=== PATIENT | female | born 1935 | race Hispanic/Latino ===

== ENCOUNTER 2017-02-20 18:26 | Inpatient (IN) | payer MEDICARE ==
[2017-02-20 18:26] VITALS: BMI 33.9
[2017-02-20] MEDS ORDERED: Sodium Chloride 0.9% 1,000 ML IV STA (19:22)
--- NOTE | 2017-02-20 19:45 | ED PDOC ---
Arrival/HPI <Chito Sy - Last Filed: 02/21/17 00:22> - History of Present Illness Time/Duration: 4-6 hours Symptom Onset: Gradual Severity Level: Mild <Yobani Fernandez - Last Filed: 02/21/17 04:12> - General Chief Complaint: GI Problem Time Seen by Provider: 02/20/17 19:08 - History of Present Illness Narrative History of Present Illness (Text): 02/20/17 19:38 This is a 81 year old female with a PMH of breast cancer, hypothyroidism, colitis, diverticulitis, HTN presenting to the ED for evaluation of BRBPR. The patient reports that she has had 7 or more BM today and has noticed dropplets of bright red blood in the toilette. The patient also reports that there is some bright red blood on the outside of the stool. The patient also notes that she had pain during defecation. The patient reports a history of GI bleed in the past. The patient denies change in color of the stool. The patient denies fever, chills, fatigue, chest pain, shortness of breath, changes in stool color/ caliber, and extremity weakness/paresthesias. (Yobani Fernandez) Past Medical History <Chito Sy - Last Filed: 02/21/17 00:22> - Provider Review Nursing Documentation Reviewed: Yes - Travel History Have you recently traveled outside [place] w/in the past 3 mons?: No - Infectious Disease Hx of Infectious Diseases: None - Tetanus Immunization Tetanus Immunization: Unknown - Reproductive Menopause: Yes - Cardiac Hx Hypertension: Yes Hx Pacemaker: No - Pulmonary Hx Respiratory Disorders: No - Neurological Hx Neurological Disorder: No Hx Paralysis: No - HEENT Hx HEENT Disorder: No - Renal Hx Renal Disorder: No - Endocrine/Metabolic Hx Hypothyroidism: Yes - Hematological/Oncological Hx Blood Transfusions: Yes Hx Blood Transfusion Reaction: No Hx Cancer: Yes (Rt. Breast CA) - Musculoskeletal/Rheumatological Hx Musculoskeletal Disorders: Yes - Gastrointestinal Other/Comment: GI BLEEDING - Genitourinary/Gynecological Hx Genitourinary Disorders: No - Psychiatric Hx Psychophysiologic Disorder: No Hx Substance Use: No - Surgical History Hx Breast Biopsy: Yes - Anesthesia Hx Anesthesia Reactions: No Hx Malignant Hyperthermia: No <Yobani Fernandez - Last Filed: 02/21/17 04:12> - Patient History Narrative Patient History: This is a 81 year old female with a PMH of breast cancer, hypothyroidism, colitis, diverticulitis, HTN (Yobani Fernandez) Family/Social History - Physician Review Nursing Documentation Reviewed: Yes Family/Social History: No Known Family HX Smoking Status: Never Smoked Hx Alcohol Use: No Hx Substance Use: No <Yobani Fernandez - Last Filed: 02/21/17 04:12> Allergies/Home Meds <Chito Sy - Last Filed: 02/21/17 00:22> <Yobani Fernandez - Last Filed: 02/21/17 04:12> Allergies/Adverse Reactions: Allergies metronidazole [From Flagyl] Allergy (Verified 02/20/17 18:50) RASH Penicillins Allergy (Verified 06/07/16 23:47) URTICARIA Home Medications: Home Meds Medication Instructions Recorded Confirmed Cholecalciferol [Vitamin D3] 1,000 iu PO DAILY 09/23/12 02/20/17 Levothyroxine Sodium [Synthroid] 0.15 mg PO DAILY 09/23/12 06/08/16 Metoprolol Tartrate 100 mg PO DAILY 09/23/12 02/20/17 traMADol [Ultram] 50 mg PO Q8 PRN 06/08/16 02/20/17 Omeprazole Magnesium [Prilosec Otc] 20 mg PO DAILY 02/20/17 02/20/17 Review of Systems - Physician Review All systems were reviewed & negative as marked: Yes - Review of Systems Constitutional: absent: Fatigue, Fevers Eyes: absent: Vision Changes, Eye Pain ENT: absent: Hearing Changes, Tinnitus Respiratory: absent: SOB, Cough Cardiovascular: absent: Chest Pain, Palpitations, Syncope Gastrointestinal: Abdominal Pain. absent: Constipation, Diarrhea, Nausea, Vomiting, Appetite Changes, Hematochezia, Hematemesis Genitourinary Female: absent: Dysuria, Frequency, Hematuria Musculoskeletal: absent: Arthralgias, Back Pain, Neck Pain, Joint Swelling Skin: absent: Rash, Skin Lesions Neurological: absent: Headache, Dizziness Endocrine: absent: Diaphoresis Hemo/Lymphatic: absent: Adenopathy Psychiatric: absent: Anxiety <Yobani Fernandez - Last Filed: 02/21/17 04:12> Physical Exam Vital Signs Reviewed: Yes Temperature: Afebrile Blood Pressure: Hypertensive Pulse: Regular Respiratory Rate: Normal Appearance: Positive for: Well-Appearing Pain Distress: None Mental Status: Positive for: Alert and Oriented X 3 - Systems Exam Head: Present: Atraumatic, Normocephalic Pupils: Present: PERRL Extroacular Muscles: Present: EOMI Conjunctiva: Present: Normal Mouth: Present: Moist Mucous Membranes. No: Drooling Neck: Present: Normal Range of Motion. No: Lymphadenopathy Respiratory/Chest: Present: Clear to Auscultation, Good Air Exchange. No: Respiratory Distress, Accessory Muscle Use Cardiovascular: Present: Regular Rate and Rhythm, Normal S1, S2. No: Murmurs Abdomen: Present: Normal Bowel Sounds. No: Tenderness, Distention, Peritoneal Signs, Rebound, Guarding Upper Extremity: Present: Normal Inspection, Normal ROM, NORMAL PULSES, Neurovascularly Intact. No: Cyanosis, Edema Lower Extremity: Present: Normal Inspection, NORMAL PULSES, Tenderness, Neurovascularly Intact. No: Edema Neurological: Present: GCS=15, CN II-XII Intact, Speech Normal Skin: Present: Warm, Dry, Normal Color. No: Rashes Psychiatric: Present: Alert, Oriented x 3 <Yobani Fernandez - Last Filed: 02/21/17 04:12> Vital Signs Temp Pulse Resp BP Pulse Ox 02/20/17 22:24 70 16 198/76 H 94 L 02/20/17 20:42 65 16 187/77 H 98 02/20/17 18:53 97.9 F 69 17 196/98 H 95 Medical Decision Making - EKG Interpretation Interpreted by ED Physician: Yes Type: 12 lead EKG <Chito Sy - Last Filed: 02/21/17 00:22> Re-evaluation Time: 21:25 Reassessment Condition: Re-examined - Lab Interpretations I have reviewed the lab results: Yes Interpretation: No clinic. lab abnormalty <Yobani Fernandez - Last Filed: 02/21/17 04:12> ED Course and Treatment: Patient seen and examined with resident Came up with treatment and disposition plan with resident (Chito Sy) 02/20/17 19:47 Impression: This is a 81 year old female with a PMH of breast cancer, hypothyroidism, colitis, diverticulitis, HTN presenting to the ED for evaluation of BRBPR. Patient appears in no acute distress. Remote history of GI bleed has her concerned for recurrence. Patient symptom presentation and reportation likely indicative of anal fissure vs hemorrhoids. Differential: Anal Fisure External Hemorrhoids GI Bleed Plan: CBC, CMP, Ferritin, TIBC, Transferrin, PRR, PT Cardiac ISO Type and Screen Protonix 1L NS Bolus CXR EKG UA Prior Visits: 06/08/16- Lower GI Bleed Progress Note: Patient seen and examined at the bedside. Patient in no acute distress. Patient showing no overt signs of blood loss anemia. patient presentation is benign. Patient pending laboratory evaluation. Further treatment interventions pending workup. 02/20/17 21:31 Patient re-examined. Feeling well. no interval changes. Laboratory results reviewed with the patient. 02/20/17 22:08 Dr. delgado's service contacted for admission. They will accept the admission to med surg floor. Patient to be full admission as per admitting physician. ( Yobani Fernandez) - Lab Interpretations Lab Results: 02/20/17 20:30 02/20/17 20:30 Lab Results 02/20/17 20:30: WBC 4.9 D, RBC 3.65, Hgb 11.7 L, Hct 34.4 L, MCV 94.2, MCH 32.1 , MCHC 34.0, RDW 13.4, Plt Count 224, MPV 9.0, Gran % 63.9, Lymph % (Auto) 27.4 , Orange % (Auto) 6.9 H, Eos % (Auto) 1.6, Baso % (Auto) 0.2, Gran # 3.14, Lymph # 1.4, Orange # 0.3, Eos # 0.1, Baso # 0.01, PT 11.0, INR 1.02, APTT 24.7, Sodium 137, Potassium 4.1, Chloride 103, Carbon Dioxide 25, Anion Gap 13, BUN 22 H, Creatinine 1.1, Est GFR ( Amer) 58, Est GFR (Non-Af Amer) 48, Random Glucose 104, Calcium 9.4, TIBC 326, Ferritin Pending, Total Bilirubin 0.7, AST 22, ALT 27, Alkaline Phosphatase 100, Lactate Dehydrogenase 535, Total Creatine Kinase 63, Troponin I < 0.01 D, Total Protein 7.4, Albumin 3.8, Globulin 3.5, Albumin/Globulin Ratio 1.1, Blood Type O POSITIVE, Antibody Screen Negative, BBK History Checked Patient has bt - RAD Interpretation Radiology Orders: 02/20/17 19:22 CHEST PORTABLE [RAD] Stat - EKG Interpretation EKG Interpretation (Text): 02/21/17 00:23 EKG: Ordered, reviewed, and independently interpreted the EKG. Rate : 64 BPM Rhythm : NSR Interpretation : No ST-segment elevations, normal axis, normal intervals. Interpreted by me. (Chito Sy) - Medication Orders Current Medication Orders: Discontinued Medications Sodium Chloride (Sodium Chloride 0.9%) 1,000 mls @ 1,000 mls/hr IV .Q1H STA Stop: 02/20/17 20:21 Last Admin: 02/20/17 20:36 Dose: 1,000 MLS/HR eMAR Start Stop Document 02/20/17 20:36 HI (Rec: 02/20/17 20:36 AL [id number]) Intravenous Solution Start Date 02/20/17 Start Time 20:36 End Date 02/20/17 End time 21:36 Total Infusion Time 60 Pantoprazole Sodium (Protonix Inj) 40 mg IVP STAT STA Stop: 02/20/17 19:23 Last Admin: 02/20/17 20:36 Dose: 40 MG IVP Administration Document 02/20/17 20:36 HI (Rec: 02/20/17 20:36 AL [id number]) Charges for Administration # of IVP Administrations 1 Disposition/Present on Arrival <Chito Sy - Last Filed: 02/21/17 00:22> - Present on Arrival Any Indicators Present on Arrival: No History of DVT/PE: No History of Uncontrolled Diabetes: No Urinary Catheter: No History of Decub. Ulcer: No History Surgical Site Infection Following: None - Disposition Have Diagnosis and Disposition been Completed?: Yes Disposition Time: 21:00 Patient Plan: Admission <Yobani Fernandez - Last Filed: 02/21/17 04:12> - Disposition Diagnosis: Bright red blood per rectum, GI bleed Disposition: HOSPITALIZED Patient Problems: Current Active Problems Problem Status Diagnosed Bright red blood per rectum Acute GI bleed Acute Condition: FAIR
[2017-02-20 20:38] LABS: ADD MANUAL DIFF? NO
[2017-02-20 20:47] LABS: BASO # 0.01 [, K/mm3] (0.0-2.0); BASO % 0.2 % (0.0-3.0); EOS # 0.1 (0.0-0.7); EOS % 1.6 % (1.5-5.0); GRAN # 3.14 (1.4-6.5); GRAN % 63.9 % (50.0-68.0); HEMATOCRIT 34.4 % (36.0-48.0); LYMPH # 1.4 (1.2-3.4); LYMPH % 27.4 % (22.0-35.0); MEAN CELL VOLUME 94.2 fL (80.0-105.0); MEAN CORPUSCULAR HEMOGLOBIN 32.1 pg (25.0-35.0); MONO # 0.3 (0.1-0.6); MONO % 6.9 % (1.0-6.0); PLATELET COUNT 224 [, 10^3/uL] (120.0-450.0); RED CELL DISTRIBUTION WIDTH 13.4 % (11.5-14.5); WHITE BLOOD COUNT 4.9 [, 10^3/ul] (4.5-11.0)
[2017-02-20 20:52] LABS: ALB/GLOB RATIO 1.1 (1.1-1.8); ALKALINE PHOSPHATASE 100 U/L (38-133); ALT/SGPT 27 U/L (7-56); AST/SGOT 22 U/L (15-39); BILIRUBIN,TOTAL 0.7 mg/dL (0.2-1.3); BLOOD UREA NITROGEN 22 mg/dL (7-21); CALCIUM 9.4 mg/dL (8.4-10.5); CARBON DIOXIDE 25 mmol/L (21-33); CHLORIDE 103 mmol/L (98-107); GFR AFRICAN-AMERICAN 58; GLUCOSE,RANDOM 104 mg/dL (70-110); POTASSIUM 4.1 mmol/L (3.6-5.0); SODIUM 137 mmol/L (132-148); TOTAL PROTEIN 7.4 g/dL (5.8-8.3)
[2017-02-20 20:54] LABS: INR 1.02 (0.93-1.08); PARTIAL THROMBOPLASTIN TIME 24.7 Seconds (23.7-30.8)
[2017-02-20 21:07] LABS: TROPONIN I < 0.01 ng/mL
--- NOTE | 2017-02-21 08:35 | CP.PCM.HP ---
History of Present Illness - History of Present Illness History of Present Illness: 81 year old female with history of hypertension, hypothyroidism, back pain, breast cancer and colitis who presented to [place] [facility] for bright red blood per rectum. Patient states she had about 7 bowel movements yesterday with a small amount of blood. She denies chest pain, or SOB. She does complain of crampy abdominal pain prior to having a bowel movement. She denies abdominal pain at this time. Present on Admission - Present on Admission Any Indicators Present on Admission: No Review of Systems - Constitutional Constitutional: absent: Chills, Fever, Night Sweats - Cardiovascular Cardiovascular: absent: Chest Pain, Dyspnea - Respiratory Respiratory: absent: Cough, Hemoptysis, Wheezing - Gastrointestinal Gastrointestinal: As Per HPI Past Patient History - Infectious Disease Hx of Infectious Diseases: None - Tetanus Immunizations Tetanus Immunization: Unknown - Past Social History Smoking Status: Never Smoked - CARDIAC Hx Hypertension: Yes Hx Pacemaker: No - PULMONARY Hx Respiratory Disorders: No - NEUROLOGICAL Hx Neurological Disorder: No Hx Paralysis: No - HEENT Hx HEENT Problems: No - RENAL Hx Chronic Kidney Disease: No - ENDOCRINE/METABOLIC Hx Hypothyroidism: Yes - HEMATOLOGICAL/ONCOLOGICAL Hx Blood Transfusions: Yes Hx Blood Transfusion Reaction: No Hx Cancer: Yes (Rt. Breast CA) - MUSCULOSKELETAL/RHEUMATOLOGICAL Hx Musculoskeletal Disorders: Yes Hx Back Pain: Yes - GASTROINTESTINAL Other/Comment: GI BLEEDING - GENITOURINARY/GYNECOLOGICAL Hx Genitourinary Disorders: No - PSYCHIATRIC Hx Psychophysiologic Disorder: No Hx Substance Use: No - SURGICAL HISTORY Hx Breast Biopsy: Yes Hx Cholecystectomy: Yes - ANESTHESIA Hx Anesthesia Reactions: No Hx Malignant Hyperthermia: No Meds Allergies/Adverse Reactions: Allergies Allergy/AdvReac Type Severity Reaction Status Date / Time metronidazole [From Flagyl] Allergy RASH Verified 02/20/17 18:50 Penicillins Allergy URTICARIA Verified 06/07/16 23:47 Physical Exam - Constitutional Appears: No Acute Distress - Head Exam Head Exam: ATRAUMATIC, NORMOCEPHALIC - Respiratory Exam Respiratory Exam: Clear to Auscultation Bilateral, NORMAL BREATHING PATTERN - Cardiovascular Exam Cardiovascular Exam: +S1, +S2 - GI/Abdominal Exam GI & Abdominal Exam: Normal Bowel Sounds, Soft. absent: Tenderness - Neurological Exam Neurological exam: Alert, Oriented x3 Results - Vital Signs Recent Vital Signs: Last Vital Signs Temp 97.9 F 03/24/17 18:53 Pulse 70 02/20/17 22:24 Resp 18 02/21/17 00:21 BP 208/78 H 02/21/17 07:00 Pulse Ox 94 L 02/20/17 22:24 - Labs Result Diagrams: 02/22/17 06:00 02/22/17 06:00 Assessment & Plan - Assessment and Plan (Free Text) Assessment: GI Bleed r/o colitis HTN Hypothyroidism Back pain H/O breast cancer s/p surgery Plan: Patient with bloody bowel movements. continue IV Protonix daily. monitor hemoglobin and we will consult gastroenterology with Dr. Angelo. Ferritin has been ordered. continue metoprolol 100 mg once daily for hypertension. Her blood pressure is elevated this morning. It was 204/78. She was given Metoprolol 100mg and Apresoline 25 mg. We will monitor blood pressure and add medication if needed. continue synthroid for hypothyroidism and ultram for back pain. She will be maintained on a 2 gram sodium diet.
--- NOTE | 2017-02-21 09:23 | RAD ---
HISTORY: Cough COMPARISON: 06/08/2016. FINDINGS: LUNGS: The lungs are hyperinflated and there is peribronchial thickening with chronic changes in both lungs. No active pulmonary disease. PLEURA: No significant pleural effusion identified, no pneumothorax apparent. CARDIOVASCULAR: Normal. OSSEOUS STRUCTURES: No significant abnormalities. VISUALIZED UPPER ABDOMEN: Normal. OTHER FINDINGS: None. IMPRESSION: No active disease. COPD.
[2017-02-21] MEDS: Levothyroxine 150 MCG TAB PO SCH (09:43)
--- NOTE | 2017-02-21 14:59 | CARD ---
APPROVED REPORT EKG Measurement Heart [id number] PA [id number] <Conclusion> Normal sinus rhythm Normal ECG
--- NOTE | 2017-02-22 06:36 | CON ---
DATE: 02/21/2017 This patient was seen and evaluated earlier and discussed with Dr. Lara. HISTORY OF PRESENT ILLNESS: This 81-year-old patient with a past medical history of right breast car cinoma, status post radiation, chemo and lumpectomy, history of hypertension, dyslipidemia, presented with acute onset of bright red blood per rectum, several episodes and had dark maroon stool. She di d have some crampy abdominal discomfort, eventually it improved. No fever, no vomiting. The patient has history of colitis, was hospitalized in 05/2015. She was treated conservatively at that time wit h antibiotics with improvement. The patient was recommended at that time to the elective colonoscopy , but she does not want to go through with colonoscopic evaluation. She did not follow up also. The patient has history of status post cholecystectomy, found to have dilated common bile duct refused [employer] at that time. PAST MEDICAL HISTORY: As above. ALLERGIES: PENICILLIN. SOCIAL HISTORY: Denies smoking or alcohol. REVIEW OF SYSTEMS: Positive as above. Other systems reviewed and negative. PHYSICAL EXAMINATION: GENERAL: The patient is lying on the bed, not in acute distress. VITAL SIGNS: Temperature is 97.9, pulse 63, respiration is 20, O2 saturation 96%, blood pressure 136 /60. HEENT: Head is atraumatic, anicteric. NECK: Supple. HEART: S1, S2 heard. LUNGS: Bilateral air entry present. ABDOMEN: Soft. There is no mass palpable. No tenderness. EXTREMITIES: No edema. No cyanosis. NEUROLOGIC: Alert, oriented. Moves all the extremities. LABORATORY DATA: WBC count 4.9, hemoglobin 11.7, hematocrit 34.4, platelets 224. Chemistry is [facility] unremarkable. BUN 22. ASSESSMENT: This 81-year-old patient admitted with acute onset of abdominal discomfort, bleeding per rectum, history of colitis in the past, likely to consider this is another episode of colitis, ische grecia versus inflammatory. The patient now has no pain, tolerating the diet. No bleeding. Hemoglobin remains stable. Her other past medical history significant for hypertension, dyslipidemia, history of breast cancer status post radiation and chemo. RECOMMENDATIONS: 1. Followup of the hemoglobin and hematocrit. 2. CT scan of the abdomen and pelvis with p.o. and IV contrast. If the hemoglobin is stable with no further episodes of bleeding and the CAT scan is negative, patient may be discharged to have followu p as an outpatient. The importance of colonoscopy was again explained to the patient who fully under stood the necessity for followup with GI as an outpatient. I also had an extensive discussion with Clare Lara. Will continue to closely follow up her care and suggest further management based on t he clinical course. Paul Angelo MD cc: [id number] TT: 02/22/2017 06:35:48 Confirmation # [id number] Dictation # [id number]
[2017-02-22 06:39] LABS: HEMATOCRIT 30.8 % (36.0-48.0); MEAN CELL VOLUME 94.2 fL (80.0-105.0); MEAN CORPUSCULAR HEMOGLOBIN 31.8 pg (25.0-35.0); MEAN CORPUSCULAR HGB CONC 33.8 g/dl (31.0-37.0); PLATELET COUNT 184 [, 10^3/uL] (120.0-450.0); RED CELL DISTRIBUTION WIDTH 13.5 % (11.5-14.5); WHITE BLOOD COUNT 3.9 [, 10^3/ul] (4.5-11.0)
[2017-02-22 06:53] LABS: BILIRUBIN,TOTAL 0.7 mg/dL (0.2-1.3); POTASSIUM 3.7 mmol/L (3.6-5.0); TOTAL PROTEIN 6.9 g/dL (5.8-8.3)
[2017-02-22 07:34] LABS: BASO # 0.01 [, K/mm3] (0.0-2.0); BASO % 0.3 % (0.0-3.0); EOS # 0.1 (0.0-0.7); EOS % 3.3 % (1.5-5.0); GRAN # 1.45 (1.4-6.5); GRAN % 36.8 % (50.0-68.0); LYMPH % 50.4 % (22.0-35.0); MONO # 0.4 (0.1-0.6); MONO % 9.2 % (1.0-6.0)
[2017-02-22 07:35] LABS: ADD MANUAL DIFF? NO
[2017-02-22] MEDS: Metoprolol Succinate 100 mg XL Tab PO SCH (08:00)
[2017-02-22] MEDS: Levothyroxine 150 MCG TAB PO SCH (08:00)
--- NOTE | 2017-02-22 09:49 | CP.PCM.PN ---
Subjective - Date & Time of Evaluation Date of Evaluation: 02/22/17 Time of Evaluation: 08:15 - Subjective Subjective: Patient is seen this morning. She is feeling ok. She says that she had some small bowel movements yesterday with a small amount of blood. Denies chest pain , SOB or abdominal pain. Objective - Vital Signs/Intake and Output Vital Signs (last 24 hours): Temp Pulse Resp BP Pulse Ox 97.6 F 70 18 168/61 H 95 02/22/17 08:05 02/22/17 08:05 02/22/17 08:05 02/22/17 08:05 02/22/17 08:05 - Medications Medications: Current Medications Cholecalciferol (Vitamin D) 1,000 iu PO DAILY [facility] Last Admin: 02/22/17 09:11 Dose: 1,000 iu Levothyroxine Sodium (Synthroid) 150 mcg PO ACB [facility] Last Admin: 02/22/17 08:00 Dose: 150 mcg Metoprolol Succinate (Toprol Xl) 100 mg PO BRK [facility] Last Admin: 02/22/17 08:00 Dose: 100 mg Pantoprazole Sodium (Protonix Inj) 40 mg IVP DAILY [facility] Last Admin: 02/22/17 09:11 Dose: 40 mg Tramadol HCl (Ultram) 50 mg PO Q8 PRN PRN Reason: Pain, moderate (4-7) Last Admin: 02/22/17 08:12 Dose: 50 mg - Labs Labs: 02/22/17 06:00 02/22/17 06:00 PT 11.0 Seconds (9.9-11.8) 02/20/17 20:30 INR 1.02 (0.93-1.08) 02/20/17 20:30 APTT 24.7 Seconds (23.7-30.8) 02/20/17 20:30 - Constitutional Appears: No Acute Distress - Head Exam Head Exam: ATRAUMATIC, NORMOCEPHALIC - Respiratory Exam Respiratory Exam: Clear to Ausculation Bilateral, NORMAL BREATHING PATTERN - Cardiovascular Exam Cardiovascular Exam: +S1, +S2 - GI/Abdominal Exam GI & Abdominal Exam: Soft, Normal Bowel Sounds. absent: Tenderness - Neurological Exam Neurological Exam: Alert, Awake, Oriented x3 Assessment and Plan - Assessment and Plan (Free Text) Assessment: GI Bleed R/O colitis HTN Hypothyroidism Back pain H/O Breast Cancer Plan: Patient complains of some small watery bowel movements with a small amount of blood. We will check a stool for C. diff and stool culture. She was evaluated by Dr. Angelo, rn postpartum. She refuses to have colonoscopy. CT abd/pelvis has been ordered by Dr. Angelo. continue Protonix. monitor H&H
[2017-02-22] MEDS ORDERED: Barium Sulfate Susp 2.1% w/v, 2.0% w/w 450 mL Bottle PO ONE (11:23)
--- NOTE | 2017-02-22 16:25 | CT ---
PROCEDURE: CT Abdomen and Pelvis with contrast HISTORY: GI Bleed COMPARISON: 06/10/2016. TECHNIQUE: CT scan of the abdomen and pelvis was performed after administration of oral contrast. Intravenous contrast was not administered. Coronal and sagittal reformatted images were obtained. Radiation dose: Total exam DLP = 1158.60 MGy-cm. FINDINGS: LOWER THORAX: The right breast is denser and larger than the left. There is dependent atelectasis in the lung bases and lingula. LIVER: The liver is normal in size. No biliary intrahepatic dilatation. GALLBLADDER AND BILE DUCTS: The gallbladder is surgically absent. Moderate dilatation of the common bile duct is in keeping with postcholecystectomy status. PANCREAS: There is mild diffuse atrophy of the pancreas. No ductal dilatation or calcifications. SPLEEN: Normal in size. ADRENALS: Both adrenal glands are normal in size without discrete nodule. KIDNEYS AND URETERS: Both kidneys are normal in size without hydronephrosis or nephrolithiasis. There is a 2.4 x 2.8 cm simple cyst in the lower pole of the right kidney, stable since the prior examination. VASCULATURE: No evidence of aortic aneurysm. The proximal aorta is tortuous. BOWEL: The small bowel loops are normal in caliber. The colon is normal in appearance. There is no evidence of bowel dilatation or obstruction. APPENDIX: Normal appendix. PERITONEUM: No free fluid. No free air. LYMPH NODES: No enlarged lymph nodes. BLADDER: Normal in appearance. 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 OTHER FINDINGS: There is a small sliding hiatal hernia. There are postsurgical changes of right supraumbilical ventral hernia repair. IMPRESSION: No acute abdominal or pelvic abnormality. Small sliding hiatal hernia.
--- NOTE | 2017-02-22 20:53 | PN ---
DATE: 02/22/2017 SUBJECTIVE: This patient was seen and evaluated earlier. No further episodes of diarrhea, feeling c omfortable. She is having p.o. contrast for the CAT scan. PHYSICAL EXAMINATION: VITAL SIGNS: Temperature 97.6, pulse 70, blood pressure 168/61. HEENT: Atraumatic, anicteric. NECK: Supple. HEART: S1, S2 heard. LUNGS: Bilateral air entry present. ABDOMEN: Soft. There is no mass palpable. No tenderness. EXTREMITIES: No cyanosis, no clubbing, no edema. LABORATORY DATA: Hemoglobin 10.4, hematocrit 30.8, WBC 3.9, platelets 184. BUN 18, creatinine 1.1. IMPRESSION: This 81-year-old patient was admitted with bleeding per rectum with loose stool. The pa yohana did have a history of colitis in the past for which she was hospitalized. At this time she den ies any abdominal pain. Hemoglobin has been stable. The patient declined to have any invasive andrew p including CAT scan, even at the time of discharge on a previous hospitalization. The daughter was also at bedside and she also confirmed that the patient does not want any workup including a colonosc opy for evaluation. However, the CAT scan was ordered to make sure there is no big mass lesions or i nflammatory changes and she was agreeable for the CAT scan. PLAN: The present plan is to follow up the CAT scan and compare it with the previous CAT scan. If t he patient is tolerating the diet and hemoglobin is stable and the CT scan is negative, then the trace ent can be discharged home tomorrow and will follow up as an outpatient. Thank you very much for allowing us to participate in the care of the patient. Paul Angelo MD cc: [id number] TT: 02/22/2017 20:52:31 Confirmation # [id number] Dictation # [id number] pietro
[2017-02-23] MEDS: Metoprolol Succinate 100 mg XL Tab PO SCH (08:19)
[2017-02-23] MEDS: Levothyroxine 150 MCG TAB PO SCH (08:19)
[2017-02-23 08:22] VITALS: BP 152/62; PULSE 63
--- NOTE | 2017-02-23 09:01 | CP.PCM.PN ---
Subjective - Date & Time of Evaluation Date of Evaluation: 02/23/17 Time of Evaluation: 08:00 - Subjective Subjective: Patient is seen this morning in room 370 bed 1. She has no complaints. She wants to go home. Objective - Vital Signs/Intake and Output Vital Signs (last 24 hours): Temp Pulse Resp BP Pulse Ox 98.1 F 63 20 152/62 H 97 02/22/17 17:34 02/23/17 08:19 02/22/17 17:34 02/23/17 08:19 02/22/17 17:34 Intake and Output: 02/23/17 02/23/17 06:59 18:59 Intake Total 200 Balance 200 - Medications Medications: Current Medications Cholecalciferol (Vitamin D) 1,000 iu PO DAILY [facility] Last Admin: 02/22/17 09:11 Dose: 1,000 iu Levothyroxine Sodium (Synthroid) 150 mcg PO ACB [facility] Last Admin: 02/23/17 08:19 Dose: 150 mcg Metoprolol Succinate (Toprol Xl) 100 mg PO BRK [facility] Last Admin: 02/23/17 08:19 Dose: 100 mg Pantoprazole Sodium (Protonix Inj) 40 mg IVP DAILY [facility] Last Admin: 02/22/17 09:11 Dose: 40 mg Tramadol HCl (Ultram) 50 mg PO Q8 PRN PRN Reason: Pain, moderate (4-7) Last Admin: 02/22/17 08:12 Dose: 50 mg - Labs Labs: 02/22/17 06:00 02/22/17 06:00 PT 11.0 Seconds (9.9-11.8) 02/20/17 20:30 INR 1.02 (0.93-1.08) 02/20/17 20:30 APTT 24.7 Seconds (23.7-30.8) 02/20/17 20:30 - Constitutional Appears: No Acute Distress - Head Exam Head Exam: ATRAUMATIC, NORMOCEPHALIC - Respiratory Exam Respiratory Exam: Clear to Ausculation Bilateral, NORMAL BREATHING PATTERN - Cardiovascular Exam Cardiovascular Exam: +S1, +S2 - GI/Abdominal Exam GI & Abdominal Exam: Soft, Normal Bowel Sounds. absent: Tenderness - Neurological Exam Neurological Exam: Alert, Awake, Oriented x3 Assessment and Plan - Assessment and Plan (Free Text) Assessment: GI Bleed r/o colitis HTN Hypothyroidism Back pain H/O Breast CA Plan: Patient is doing well. She refuses to have colonoscopy. GI consult appreciated. CT abd/pelvis shows small sliding hiatal hernia. Patient will be discharged home today. She will continue her home medications and followup with her primary care doctor. Discharge meds: Cholecalciferol (Vitamin D) 1,000 iu PO DAILY [facility] Levothyroxine Sodium (Synthroid) 150 mcg PO ACB [facility] Metoprolol Tartrate 100 mg PO BRK [facility] Tramadol 50 mg PO TID Prilosec 20 mg PO daily
[2017-02-23] MEDS ORDERED: Pneumococcal 23-Valent Vaccine IM ONE (09:16)
[2017-02-23 09:25] VITALS: RESP 17; TEMP 97.5; O2SAT 96
== END 2017-02-23 10:46 | disposition home or self-care (01) | DRG 392 ==
LOC: ED 18:26 → ERH 22:16 → 3RSO 23:16
PROVIDERS: ADMIT Internal Medicine; ATTEND Internal Medicine
DX: K52.9 Noninfective gastroenteritis and colitis, unspecified (principal); I10 Essential (primary) hypertension; E03.9 Hypothyroidism, unspecified; M54.9 Dorsalgia, unspecified; E78.5 Hyperlipidemia, unspecified; Z85.3 Personal history of malignant neoplasm of breast; Z92.3 Personal history of irradiation; Z92.21 Personal history of antineoplastic chemotherapy; Z90.49 Acquired absence of other specified parts of digestive tract

== ENCOUNTER 2019-04-22 11:41 | Inpatient (IN) | payer MEDICARE ==
[2019-04-22 12:05] VITALS: BMI 31.6
--- NOTE | 2019-04-22 12:20 | ED PDOC ---
Arrival/HPI - General Chief Complaint: Cough, Cold, Congestion Time Seen by Provider: 04/22/19 11:48 Historian: Patient - History of Present Illness Narrative History of Present Illness (Text): 04/22/19 12:21 83 year old female, with a past medical history of breast cancer, and hypertension, who presents to the emergency department complaining of cough x 1 week. Patient reports she was given medications for cough, which she states she vomited after taking yesterday. Patient reports 2 episodes of vomiting today. Patient endorses generalized weakness today and states she could not walk and had to use a walker. She denies any fever, chills, nausea, shortness of breath, chest pain, throat pain, abdominal pain, or any other somatic complaints. Patient denies any sick contact or recent travel. Symptom Onset: Gradual Symptom Course: Unchanged Activities at Onset: Light Context: Home Past Medical History - Provider Review Nursing Documentation Reviewed: Yes Primary Care Provider: Non [facility] Provider, - Infectious Disease Hx of Infectious Diseases: None - Tetanus Immunization Tetanus Immunization: Unknown - Reproductive Menopause: Yes - Cardiac Hx Hypertension: Yes Hx Pacemaker: No - Pulmonary Hx Respiratory Disorders: No - Neurological Hx Neurological Disorder: No Hx Paralysis: No - HEENT Hx HEENT Disorder: No - Renal Hx Renal Disorder: No - Endocrine/Metabolic Hx Hypothyroidism: Yes - Hematological/Oncological Hx Blood Transfusions: Yes Hx Blood Transfusion Reaction: No Hx Cancer: Yes (Rt. Breast CA) - Musculoskeletal/Rheumatological Hx Musculoskeletal Disorders: Yes Hx Back Pain: Yes - Gastrointestinal Other/Comment: GI BLEEDING - Genitourinary/Gynecological Hx Genitourinary Disorders: No - Psychiatric Hx Psychophysiologic Disorder: No Hx Substance Use: No - Surgical History Hx Breast Biopsy: Yes Hx Cholecystectomy: Yes - Anesthesia Hx Anesthesia Reactions: No Hx Malignant Hyperthermia: No Family/Social History - Physician Review Nursing Documentation Reviewed: Yes Family/Social History: Unknown Family HX Smoking Status: Never Smoked Hx Alcohol Use: No Hx Substance Use: No Allergies/Home Meds Allergies/Adverse Reactions: Allergies metronidazole [From Flagyl] Allergy (Verified 04/22/19 17:27) RASH Penicillins Allergy (Verified 04/22/19 17:27) URTICARIA atorvastatin Adverse Reaction (Intermediate, Verified 04/24/19 18:30) PAIN Pt states she was prescribed medication by her site lead previously and experienced joint pain. Home Medications: Home Meds Medication Instructions Recorded Confirmed traMADol [Ultram] 50 mg PO Q8 PRN 06/08/16 04/22/19 Review of Systems - Physician Review All systems were reviewed & negative as marked: Yes - Review of Systems Constitutional: absent: Fevers Respiratory: Cough. absent: SOB Cardiovascular: absent: Chest Pain Gastrointestinal: Vomiting. absent: Abdominal Pain, Nausea Physical Exam Vital Signs Reviewed: Yes Vital Signs Temp Pulse Resp BP Pulse Ox 04/22/19 12:11 76 18 151/75 H 96 04/22/19 12:05 98 F 73 18 151/75 H 97 Temperature: Afebrile Blood Pressure: Normal Pulse: Regular Respiratory Rate: Normal Appearance: Positive for: Well-Appearing, Non-Toxic, Comfortable Pain Distress: None Mental Status: Positive for: Alert and Oriented X 3 - Systems Exam Head: Present: Atraumatic, Normocephalic Pupils: Present: PERRL Extroacular Muscles: Present: EOMI Conjunctiva: Present: Normal Mouth: Present: Moist Mucous Membranes Neck: Present: Normal Range of Motion Respiratory/Chest: Present: Clear to Auscultation, Good Air Exchange. No: Respi ratory Distress, Accessory Muscle Use Cardiovascular: Present: Regular Rate and Rhythm, Normal S1, S2. No: Murmurs Abdomen: No: Tenderness, Distention, Peritoneal Signs Back: Present: Normal Inspection Upper Extremity: Present: Normal Inspection. No: Cyanosis, Edema Lower Extremity: Present: Normal Inspection. No: Edema Neurological: Present: GCS=15, Speech Normal Skin: Present: Warm, Dry, Normal Color. No: Rashes Psychiatric: Present: Alert, Oriented x 3, Normal Insight, Normal Concentration Medical Decision Making ED Course and Treatment: 04/22/19 12:17 Impression: 83 year old female presents to the emergency department complaining of cough. Differential Diagnosis included but are not limited to: r/o Pneumonia v HI. Plan: -- Chest X-ray -- Labs -- EKG -- VBG -- Reassess and disposition Prior Visits: Notes and results from previous visits were reviewed. Progress Notes: 04/22/19 14:[address] Espinoza (Cardiology), states since patient is not complaining about chest pain, will continue with regular medications, will admit to telemetry. - RAD Interpretation Narrative RAD Interpretations (Text): 04/22/19 12:42 Chest X-ray reviewed by radiologist, shows: No active disease Project Crew Worker: Radiologist - EKG Interpretation EKG Interpretation (Text): 04/22/19 12:31 Normal sinus rhythm at 72 bpm, RBBB, right axis deviation. Interpreted by ED Physician: Yes - Scribe Statement The provider has reviewed the documentation as recorded by the Tamikaibe [place] All medical record entries made by the Tamikaibji were at my direction and personally dictated by me. I have reviewed the chart and agree that the record accurately reflects my personal performance of the history, physical exam, medical decision making, and the department course for this patient. I have also personally directed, reviewed, and agree with the discharge instructions and disposition. Disposition/Present on Arrival - Present on Arrival Any Indicators Present on Arrival: No History of DVT/PE: No History of Uncontrolled Diabetes: No Urinary Catheter: No History of Decub. Ulcer: No History Surgical Site Infection Following: None - Disposition Have Diagnosis and Disposition been Completed?: Yes Diagnosis: NSTEMI (non-ST elevated myocardial infarction), CHF (congestive heart failure) Disposition: HOSPITALIZED Disposition Time: 14:33 Patient Plan: Telemetry Condition: GUARDED
--- NOTE | 2019-04-22 12:39 | RAD ---
Date of service: 04/22/2019 HISTORY: r/o infiltrate COMPARISON: 02/20/2017 TECHNIQUE: 1 view obtained. FINDINGS: LUNGS: No active pulmonary disease. PLEURA: No significant pleural effusion identified, no pneumothorax apparent. CARDIOVASCULAR: No aortic atherosclerotic calcification present. Normal cardiac size. No pulmonary vascular congestion. OSSEOUS STRUCTURES: No significant abnormalities. VISUALIZED UPPER ABDOMEN: Normal. OTHER FINDINGS: None. IMPRESSION: No active disease.
[2019-04-22 12:45] LABS: VENOUS BLOOD GAS BASE EXCESS 0.1 mmol/L (0.0-2.0); VENOUS BLOOD GAS PO2 25 mm/Hg (30-55); VENOUS BLOOD PH 7.41 (7.32-7.43)
[2019-04-22 13:04] LABS: BASO # 0.01 K/mm3 (0.0-2.0); BASO % 0.3 % (0.0-3.0); EOS # 0.1 (0.0-0.7); EOS % 1.8 % (1.5-5.0); HEMOGLOBIN 12.1 g/dL (12.0-16.0); LYMPH # 1.1 (1.2-3.4); LYMPH % 32.6 % (22.0-35.0); MEAN CORPUSCULAR HEMOGLOBIN 31.6 pg (25.0-35.0); MEAN PLATELET VOLUME 9.3 fl (7.0-11.0); MONO # 0.3 (0.1-0.6); MONO % 8.8 % (1.0-6.0); RBC 3.83 10^6/uL (3.5-6.1); RED CELL DISTRIBUTION WIDTH 13.8 % (11.5-14.5); WHITE BLOOD COUNT 3.4 10^3/uL (4.5-11.0)
[2019-04-22 13:40] LABS: ALB/GLOB RATIO 1.1 (1.1-1.8); ALBUMIN 3.9 g/dL (3.0-4.8); CALCIUM 8.9 mg/dL (8.4-10.5)
[2019-04-22] MEDS ORDERED: Famotidine 20mg/50ml 20 MG in Premixed IV 50 EA IVPB STA (14:15)
[2019-04-22 14:23] LABS: TROPONIN I 2.84 ng/mL
[2019-04-22] MEDS: Sodium Chloride 0.9% 1,000 ML IV STA ×2 (14:24→14:35)
[2019-04-22] MEDS ORDERED: Sodium Chloride 0.9% 500 ML IV STA (14:37)
[2019-04-22] MEDS ORDERED: Morphine 2 mg/ml ISec IVP PRN (15:39)
[2019-04-22] MEDS ORDERED: Metoprolol Succinate 100 mg XL Tab PO SCH (15:45)
[2019-04-22] MEDS ORDERED: Sodium Chloride 0.9% 1,000 ML IV SCH (16:15)
[2019-04-22 16:31] LABS: VENOUS BLOOD GAS BASE EXCESS -1.5 mmol/L (0.0-2.0); VENOUS BLOOD GAS PO2 100 mm/Hg (30-55); VENOUS BLOOD PH 7.46 (7.32-7.43)
[2019-04-22] MEDS: Metoprolol Succinate 100 mg XL Tab PO SCH (16:45)
[2019-04-22] MEDS: guaiFENesin DM 100 mg-10 mg/5 ml UD PO PRN (16:46)
[2019-04-22] MEDS ORDERED: Enoxaparin 100 mg Syringe SC SCH (23:15)
[2019-04-22] MEDS ORDERED: Pneumococcal 23-Valent Vaccine IM ONE (23:21)
--- NOTE | 2019-04-22 23:24 | CP.PCM.PN ---
<SterlingJoe - Last Filed: 04/22/19 23:20> Subjective - Date & Time of Evaluation Date of Evaluation: 04/22/19 Time of Evaluation: 23:20 - Subjective Subjective: PGY1 House Doc Note S: Paged about increase in troponin level for patient. Increased from 2.84 to 4.66. Patient says she presented for cough x1 week duration. She has PMHx breast ca and HTN. Denies chest pain. In the ED, Dr. Espinoza recommended to c/w conservative management however this is prior to the increase in troponin. O: Vitals reviewed and stable. Sleeping comfortably. Physical exam for heart/lung wnl. A: NSTEMI P: - Reached out to Dr. Espinoza in regards to increase in troponin level. Pending response. - As of now, will administer asa 325mg, lovenox sc 1mg/kg q12, EKG stat, follow up 3rd troponin, load plavix 300mg and keep NPO past midnight in the event that patient may need cardiac cath. - Will monitor closely for now. Objective - Vital Signs/Intake and Output Vital Signs (last 24 hours): Temp Pulse Resp BP Pulse Ox 99.9 F H 62 20 161/81 H 95 04/22/19 17:41 04/22/19 18:00 04/22/19 17:41 04/22/19 17:41 04/22/19 17:41 Intake and Output: 04/22/19 04/23/19 18:59 06:59 Intake Total 440 Balance 440 - Medications Medications: Current Medications Acetaminophen (Tylenol 325mg Tab) 650 mg PO Q4 PRN PRN Reason: Pain, Mild (1-3) Aspirin (Ecotrin) 81 mg PO DAILY [facility] Enoxaparin Sodium (Lovenox) 90 mg SC Q12H [facility]; Protocol Famotidine (Pepcid) 20 mg PO DAILY [facility] Last Admin: 04/22/19 15:58 Dose: Not Given Guaifenesin/Dextromethorphan (Robitussin Dm) 5 ml PO Q4H PRN PRN Reason: Cough Last Admin: 04/22/19 16:46 Dose: 5 ml Sodium Chloride (Sodium Chloride 0.9%) 1,000 mls @ 40 mls/hr IV .Q24H [facility] Last Admin: 04/22/19 16:30 Dose: 40 mls/hr Levothyroxine Sodium (Synthroid) 125 mcg PO 0600 [facility] Metoprolol Succinate (Toprol Xl) 100 mg PO BRK [facility] Last Admin: 04/22/19 16:45 Dose: 100 mg Morphine Sulfate (Morphine) 1 mg IVP Q4H PRN PRN Reason: Pain, severe (8-10) Ondansetron HCl (Zofran Inj) 2 mg IVP Q6H PRN PRN Reason: Nausea/Vomiting Pantoprazole Sodium (Protonix Ec Tab) 20 mg PO DAILY [facility] Tramadol HCl (Ultram) 50 mg PO Q8H PRN PRN Reason: Pain, moderate (4-7) - Labs Labs: 04/22/19 12:45 04/22/19 13:15 <Maine Randall - Last Filed: 04/23/19 02:29> Objective - Vital Signs/Intake and Output Vital Signs (last 24 hours): Temp Pulse Resp BP Pulse Ox 99.9 F H 77 18 161/81 H 95 04/22/19 17:41 04/22/19 23:02 04/22/19 23:02 04/22/19 17:41 04/22/19 17:41 Intake and Output: 04/22/19 04/23/19 18:59 06:59 Intake Total 440 Balance 440 - Medications Medications: Current Medications Acetaminophen (Tylenol 325mg Tab) 650 mg PO Q4 PRN PRN Reason: Pain, Mild (1-3) Aspirin (Ecotrin) 81 mg PO DAILY [facility] Doxycycline Hyclate (Doryx) 100 mg PO Q12 [facility]; Protocol Stop: 05/02/19 10:01 Enoxaparin Sodium (Lovenox) 90 mg SC Q12H [facility]; Protocol Last Admin: 04/22/19 23:55 Dose: 90 mg Famotidine (Pepcid) 20 mg PO DAILY [facility] Last Admin: 04/22/19 15:58 Dose: Not Given Guaifenesin/Dextromethorphan (Robitussin Dm) 5 ml PO Q4H PRN PRN Reason: Cough Last Admin: 04/22/19 16:46 Dose: 5 ml Sodium Chloride (Sodium Chloride 0.9%) 1,000 mls @ 40 mls/hr IV .Q24H [facility] Last Admin: 04/22/19 16:30 Dose: 40 mls/hr Meropenem (Merrem Iv 1 Gm Premix) 1 gm in 50 mls @ 100 mls/hr IVPB Q12H [facility]; Protocol Levothyroxine Sodium (Synthroid) 125 mcg PO 0600 [facility] Metoprolol Succinate (Toprol Xl) 100 mg PO BRK [facility] Last Admin: 04/22/19 16:45 Dose: 100 mg Morphine Sulfate (Morphine) 1 mg IVP Q4H PRN PRN Reason: Pain, severe (8-10) Ondansetron HCl (Zofran Inj) 2 mg IVP Q6H PRN PRN Reason: Nausea/Vomiting Pantoprazole Sodium (Protonix Ec Tab) 20 mg PO DAILY [facility] Tramadol HCl (Ultram) 50 mg PO Q8H PRN PRN Reason: Pain, moderate (4-7) - Labs Labs: 04/22/19 12:45 04/22/19 13:15 Attending/Attestation - Attestation I have personally seen and examined this patient.: Yes I have fully participated in the care of the patient.: Yes I have reviewed all pertinent clinical information, including history, physical exam and plan: Yes Notes (Text): 04/23/19 02:28 Patient was seen at bedside who is resting, vss, not in distress with normal breathing pattern.
--- NOTE | 2019-04-23 00:48 | HP ---
DATE OF EXAM: 04/22/2019 This is Ms. Martell's admission history and physical. For Dr. Bills. CHIEF COMPLAINT: Elevated troponin. HISTORY OF PRESENT ILLNESS: The patient is an 83-year-old female admitted to the emergency room after had a cough who approximately for one week's time after caring for a family member who was ill with the patient then being seen by a primary care doctor with [facility] begun yesterday taken for one day with resultant nausea and vomiting with headaches with no improvement in the cough with the patient then feeling weak and brought to the emergency room by her son. The patient is now seen with her daughter who is a nurse at the bedside reporting that she denies any chest pain; however, significant low back pain for which she has had kyphoplasty in the past with pain significant in the low back and the patient ambulates with a cane to that end. At present, she is status post treated with Zofran and her nausea has improved. The patient's gait compromised so that she had severe difficulty walking. The patient is now being evaluated for a significantly elevated troponin noted on testing done. Troponin of 2.8. The patient is denying fever, chills, shortness of breath, or any other somatic complaints at this time except for her back pain as above. She is otherwise now resting comfortably with her daughter at the bedside. ALLERGIES: PENICILLIN, OXYCODONE, AND FLAGYL. MEDICATIONS: Include Synthroid, metoprolol, Prilosec alternating with Zantac every other day, calcium and vitamin D. She also takes tramadol p.r.n. for pain; however, it does not help her pain she reports recently. PAST MEDICAL HISTORY: Significant for stage III cancer of the breast, ER/VA negative, also status post kyphoplasty, back surgery, ASCVD, CHF history, status post lumpectomy with radiation, spondylolisthesis, spinal canal stenosis, osteopenia, history of GERD, rectal bleed, hypertension, and hypothyroidism. FAMILY AND SOCIAL HISTORY: Nonsmoker and nonethanolic. Daughter at the bedside, also alive and well, otherwise, noncontributory. REVIEW OF SYSTEMS: A 12-point review of systems was negative to questions except as mentioned in history of present illness as above. PHYSICAL EXAMINATION: VITAL SIGNS: Temperature 98, pulse 74, respirations 18, blood pressure 159/76, and pulse ox 95%. HEENT: Unremarkable. Tongue is moist. NECK: Supple. HEART: Regular rate. LUNGS: Clear. ABDOMEN: Soft and nontender. EXTREMITIES: No edema. SKIN: Warm and dry. NEUROLOGIC: Awake and alert; however, increased tenderness to gentle palpation. Decreased range of motion to the mid lower back. LABORATORY DATA: EKG was done showing normal sinus rhythm at 72, right bundle-branch block, and right axis deviation. Chest x-ray was done showed no active disease. The patient's labs were done, white blood cell count 3.4, hemoglobin 12.1, hematocrit 35.6, and platelet count 108,000 with a metabolic panel completely within normal range except for AST of 43. B-natriuretic peptide of 5770 with troponin value of 2.84. Blood gases done showing a pH of 7.4 with pO2 of 25 of venous blood gas. ASSESSMENT: For this patient is that of elevated troponin, rule out myocardial damage in the patient with known atherosclerotic cardiovascular disease, history of breast cancer stage III, nausea and vomiting secondary to above?, persistent cough, history of gastroesophageal reflux disease, rule out bronchitis, hypertension, hypothyroidism, history of kyphoplasty with severe pain, mid lower back, spinal stenosis, and spondylolisthesis. PLAN: For this patient is to be admitted to telemetry or remote telemetry, emergency room doctor held conversation with Dr. Espinoza, head sugar reprocess operator who recommends that the patient be observed with her medications to continue. We will monitor serial troponins. Oxygen 2 L nasal cannula. Her medications will be continued. We will check TSH level in the morning along with repeat labs. We will offer Tylenol for mild pain and tramadol for moderate pain and after conversation with the patient and her daughter, we will give a trial of morphine 1 mg every 4 hours IV for severe pain as the patient had untoward reaction to oxycodone, which will be listed as one of her allergic medications. We will continue Zofran along with low flow IV fluids of normal saline at 40 mL an hour with sips of clear liquids as tolerated. We asked for consult with Dr. Espinoza and Dr. Jason, Pulmonology with further recommendations as indicated. We will also give 81 mg daily aspirin. This is a complex patient with a comprehensive medically necessary and appropriate visit carried out in excess of 80 minutes with the patient and her daughter's questions answered to their satisfaction along with conversation held with nursing staff and the patient and her family members. Orlando Piña MD
[2019-04-23] MEDS: guaiFENesin DM 100 mg-10 mg/5 ml UD PO PRN ×2 (04:57→18:42)
[2019-04-23] MEDS: Meropenem IV 1 gm in NS 1 GM/50 ML BAG IVPB SCH ×2 (05:53→17:27)
[2019-04-23] MEDS: Levothyroxine 125 MCG TAB PO SCH (05:53)
[2019-04-23 07:35] LABS: INR 1.24
[2019-04-23 07:39] LABS: BASO # 0.06 K/mm3 (0.0-2.0); BASO % 1.9 % (0.0-3.0); EOS # 0.1 (0.0-0.7); EOS % 3.7 % (1.5-5.0); HEMOGLOBIN 11.2 g/dL (12.0-16.0); LYMPH # 1.4 (1.2-3.4); LYMPH % 42.5 % (22.0-35.0); MEAN CELL VOLUME 93.4 fl (80.0-105.0); MEAN CORPUSCULAR HEMOGLOBIN 30.9 pg (25.0-35.0); MEAN PLATELET VOLUME 9.2 fl (7.0-11.0); MONO # 0.4 (0.1-0.6); MONO % 11.2 % (1.0-6.0); RBC 3.63 10^6/uL (3.5-6.1); RED CELL DISTRIBUTION WIDTH 13.9 % (11.5-14.5); WHITE BLOOD COUNT 3.2 10^3/uL (4.5-11.0)
[2019-04-23 08:02] LABS: ALB/GLOB RATIO 0.9 (1.1-1.8); ALBUMIN 3.4 g/dL (3.0-4.8); CALCIUM 8.3 mg/dL (8.4-10.5); TROPONIN I 2.73 ng/mL
[2019-04-23] MEDS: Metoprolol Succinate 100 mg XL Tab PO SCH (08:17)
[2019-04-23] MEDS: Enoxaparin 80 mg Syringe SC SCH ×2 (09:37→22:00)
[2019-04-23] MEDS: Pantoprazole 20 mg EC Tab PO SCH (09:38)
--- NOTE | 2019-04-23 11:50 | CARD ---
APPROVED REPORT Date of service: 04/23/2019 EKG Measurement Heart [id number] <Conclusion> Normal sinus rhythm Right bundle branch block Abnormal ECG
--- NOTE | 2019-04-23 11:55 | CARD ---
APPROVED REPORT Date of service: 04/22/2019 EKG Measurement Heart [id number] <Conclusion> Normal sinus rhythm Right bundle branch block Abnormal ECG
--- NOTE | 2019-04-23 12:09 | PN ---
DATE: 04/23/2019 This is [facility] visit on telemetry. For Dr. Bills. SUBJECTIVE: The patient is an 83-year-old female, seems sitting up in bed. Now known to have elevated troponin values, 2.8 on admission, 4.6 on followup with 2.7 most recent value, being seen by Dr. Espinoza, Cardiology with anticoagulation begun with the patient asymptomatic except for cough and her chronic low back pain. She is now started on antibiotics as per Dr. Saini, and the patient is in no acute distress. OBJECTIVE/PHYSICAL EXAMINATION: VITAL SIGNS: Temperature 98.2, pulse 63, respirations 18, blood pressure 171/81, and pulse ox 92%. HEENT: Unremarkable. NECK: Supple. HEART: Regular rate; occasional ectopic beat. LUNGS: Clear. ABDOMEN: Obese, soft, and nontender. EXTREMITIES: No edema. SKIN: Warm and dry. NEUROLOGIC: Awake and alert with tenderness to gentle palpation to mid lower back in the chronic nature. LABORATORY DATA: The patient's labs were done. White blood cell count 3.2, hemoglobin 11.2, hematocrit 33.9, and platelet count of 145,000. Her INR this morning was 1.24 with a metabolic panel within normal range except for an AST of 50. Her TSH is 0.29 with a troponin as repeated above 2.73, most recent was 4.6 yesterday evening. The patient had EKGs done which will be read by Dr. Espinoza. The initial reading was that of nonspecific ST changes with right bundle branch block. ASSESSMENT: For this patient is that of [id number] myocardial infarction; persistent cough/bronchitis; hypothyroidism; stage III cancer of the breast in remission; atherosclerotic cardiovascular disease; congestive heart failure history; spondylolisthesis; osteopenia; gastroesophageal reflux disease and hypertension. PLAN: Plan for this patient is to continue present medical regimen as per Dr. Espinoza. We will consult with Dr. Jason for her cough with Infectious Disease consult where antibiotics to continue. We are also awaiting sputum culture which was requested and it has not been done with further recommendations as indicated with anticoagulation. Continuing with IV antibiotics also continued. This is a complex patient with a comprehensive medically necessary and appropriate visit carried out in excess of 40 minutes with the patient's questions answered to her satisfaction. Orlando Piña MD
--- NOTE | 2019-04-23 12:15 | CON ---
DATE: 04/23/2019 REQUESTING PHYSICIAN: Dr. Piña. REASON FOR CONSULTATION: Elevated troponin. HISTORY OF PRESENT ILLNESS: This is an 83-year-old woman, well known to me, with a history of prior breast cancer, hypertension, and mild mitral regurgitation, who has been bothered by incessant cough for the past week. She was given oral antibiotics as an outpatient. However, this did not improve her symptoms. Yesterday, she felt weak and was nauseated and also vomited. She was brought to the emergency room by her daughter. She denied any chest pain. Her electrocardiogram showed a new right bundle-branch block pattern with no acute ischemic changes. Her CK was normal at 161; however, troponin was elevated at 2.84. Followup troponin is 4.66. She is seen lying in bed on telemetry. She is currently comfortable. She denies any nausea or chest pain. PAST MEDICAL HISTORY: Her past medical history is notable for the problems mentioned above. She does have a history of hypothyroidism, gastroesophageal reflux disease, prior rectal bleeding, spinal stenosis, a prior kyphoplasty, and back surgery. HOME MEDICATIONS: Her medications at home include Synthroid, metoprolol, Prilosec, and Zantac. ALLERGIES: SHE HAS HAD A REACTION TO PENICILLIN, FLAGYL, AND OXYCODONE IN THE PAST. SOCIAL HISTORY: She does not smoke or drink. FAMILY HISTORY: Both parents are from age-related illness. There is no family history of premature heart disease. REVIEW OF SYSTEMS: A 12-point review of systems is notable for chronic back pain. She denies any PND or orthopnea. PHYSICAL EXAMINATION: GENERAL: She is an overweight, elderly woman. VITAL SIGNS: Her blood pressure is 154/80 with a pulse of 66 and sinus, respirations are 16. She is afebrile, but her peak temperature yesterday was 99.9. HEENT: Normocephalic, atraumatic. NECK: Supple. No JVD noted. CHEST: Bilateral coarse rhonchi heard. No rales noted. HEART: PMI displaced laterally with a soft systolic murmur heard at the apex. ABDOMEN: Soft, mildly obese, nontender, with normoactive bowel sounds. EXTREMITIES: No clubbing, cyanosis, or edema. SKIN: Warm and dry. PSYCHIATRIC: Normal mood and affect. NEUROLOGICAL: Alert and oriented x3. No gross motor or sensory deficits notable. LABORATORY AND DIAGNOSTIC DATA: White count 3.4, hemoglobin and hematocrit of 12.1 and 35.6, with a platelet count of 180,000, potassium 4.5, BUN and creatinine are 17 and 1.1. BNP 5770 with a troponin of 2.84; repeat is 4.66. Arterial blood gas revealed a pH of 7.46, pCO2 of 30, pO2 of 100. Electrocardiogram reveals sinus rhythm with a right bundle-branch block pattern. Chest x-ray reveals normal cardiac silhouette with clear lung miranda. IMPRESSION: 1. Elevated troponin, possible small mbc-UG-ercyvpg elevation myocardial infarction, appears uncomplicated and clinically stable at the present time. 2. History of breast cancer. 3. History of hypertension. 4. Rest of the problems as noted. RECOMMENDATIONS: At this time, standard medical therapy with aspirin, Lovenox, beta-tri, and statin will be initiated. The implications of her elevated troponin were discussed with her. Treatment options including cardiac catheterization versus medical therapy was discussed with her. She would prefer to avoid catheterization at the present time. The risks and benefits were reviewed with her. At the present time, if she remains stable, medical therapy will be continued with an eventual stress test to assess for potential residual ischemia and jeopardized myocardium. If she has any chest pain or significant EKG changes or should her troponin rise significantly higher, catheterization would appear more reasonable. Followup blood work and electrocardiograms have been ordered. Further recommendations will be made based upon her clinical course. Plavix has been added to her regimen as well. Thank you for this consultation. We will be happy to follow along with her hospital course as needed. Meño Espinoza MD
--- NOTE | 2019-04-23 19:23 | CON ---
DATE OF CONSULTATION: 04/23/2019 CHIEF COMPLAINT: Cough x1 week duration and shortness of breath. HISTORY OF PRESENT ILLNESS: This is an 83-year-old female with a history of breast cancer, who had a lumpectomy, had chemotherapy and radiation 8 years ago, and who has hypertension, hypothyroidism, mitral valve prolapse, who was admitted with a cough and shortness of breath. She states she did not have any fevers. She did have chills and cough is nonproductive. She has shortness of breath at rest. She did have some chest discomfort. No abdominal pain, diarrhea or constipation. No dysuria or frequency. PAST MEDICAL HISTORY: Significant for breast cancer resulting in a lumpectomy, had chemotherapy and radiation that was 8 years ago and the patient also with hypertension, hypothyroidism, mitral valve prolapse. PAST SURGICAL HISTORY: Significant for breast biopsy and lumpectomy and cholecystectomy. MEDICATIONS AT HOME: Tramadol, omeprazole, levothyroxine, metoprolol. ALLERGIES: THE PATIENT IS ALLERGIC TO PENICILLIN, SHE STATES SHE DEVELOPED A RASH. SHE ALSO STATES THE SAME THING HAPPENED WHEN SHE TOOK FLAGYL, SHE HAS DEVELOPED A RASH. REVIEW OF SYSTEMS: Reveals the patient's 12-point review of systems is performed. PHYSICAL EXAMINATION: VITAL SIGNS: The patient's T-max is 99.9 with heart rate of 68, respiratory rate of 18, and O2 saturating at 92%. HEENT: Unremarkable. NECK: Supple. LABORATORY EXAMINATION: White count of 3.4, hemoglobin of 12, and platelets of 180,000, coagulation is noted. BUN of 17, creatinine of 1.1. The patient's troponin was 2.84 and repeat was 4.66, another one 2.73. Microbiology is pending. She has had cultures in 2016, which was negative, and stool cultures done in 2017, which was negative. The patient's chest x-ray is reported to be no active disease. Review of orders reveals the patient is on p.o. doxycycline and meropenem. ASSESSMENT/PLAN: The patient is an 83-year-old female who was admitted with what appears to be acute non-ST elevation myocardial infarction with leukopenia and bronchitis. We will check on the blood cultures, sputum cultures, urine Legionella antigen, procalcitonin. Because of the leukopenia, we will order an HIV test. If cultures are negative, we will discontinue the antibiotics and we will follow closely with you. Jose Saini MD
--- NOTE | 2019-04-23 21:22 | CON ---
DATE OF CONSULTATION: 04/23/2019 REFERRING PHYSICIAN: Orlando Piña MD REASON FOR CONSULTATION: Cough and shortness of breath. HISTORY OF PRESENT ILLNESS: This is an 83-year-old female with past medical history significant for stage III breast cancer, heart failure, history of lumpectomy and radiation therapy, spinal stenosis, GERD, hypertension, who has been having some cough and shortness of breath treated as an outpatient with Zithromax. She comes into emergency room with persistent cough and shortness of breath. No hemoptysis, no hematemesis, no hematuria, no diarrhea reported. On admission, found to have a troponin positive. Cardiology consult was called. PAST MEDICAL HISTORY: As per history of present illness. FAMILY HISTORY: No cardiopulmonary disease reported. SOCIAL HISTORY: She is nonsmoker, nondrinker. MEDICATIONS: She is on doxycycline 100 mg twice a day, Ecotrin 81 mg daily, Lipitor 20 mg daily, Lovenox 70 mg subcu every 12 hours, meropenem 1 g IV every 12 hours, morphine 1 mg every 4 hours p.r.n., Pepcid 20 mg daily, Plavix 75 mg daily, Protonix 20 mg daily, Robitussin 10 mL every 4 hours p.r.n., Synthroid 125 mcg daily, Toprol XL 100 mg daily, Tylenol p.r.n., Ultram 50 mg every 8 hours p.r.n., Zofran p.r.n. basis. ALLERGIES: OXYCONTIN, FLAGYL AND PHENYTOIN. REVIEW OF SYSTEMS: No headache, no rhinitis. Does have a cough and shortness of breath. Denies any chest pain. No nausea, vomiting, diarrhea, leg pain or leg swelling. PHYSICAL EXAMINATION: GENERAL: No acute distress. VITAL SIGNS: Temperature is 98, heart rate 64, respiratory rate is 20, blood pressure 130/68, pulse ox 95% on room air. HEENT: Moist mucous membranes. Crowded airway. NECK: Supple. No JVD. LUNGS: Had a few scattered rhonchi. HEART: S1 and S2. ABDOMEN: Soft, nontender, no organomegaly. EXTREMITIES: There is no edema. NEUROLOGIC: Awake and alert, follows simple commands. LABORATORY DATA: Hemoglobin 11.2, hematocrit 33.9, WBC 3.2, platelet count is 145,000. INR 1.24. Blood gases show VBG pH 7.46, pCO2 is 30, O2 is 100. Sodium 133, potassium 4.4, chloride 102, bicarbonate 22, BUN 19, creatinine 1.2, glucose is 94, calcium is 8.3. Total bili 0.5, AST 50, ALT 20, alk phos is 58. Troponin is 2.73. Albumin is 3.4. Procalcitonin 0.05. TSH is 0.29. Chest x-ray done in ER shows no active pulmonary disease. Had EKG done in ER shows normal sinus rhythm, right bundle branch block. IMPRESSION AND PLAN: History of breast cancer, been on chemoradiation therapy, also a lumpectomy done, [id number] myocardial infarction, hypothyroid, gastroesophageal reflux disease, hypertension. Agree with the present treatment. We will add gastric prophylaxis, deep vein thrombosis prophylaxis. Keep head at 45 degrees. Cough suppressant. We will get CT scan of the chest to evaluate the lung parenchyma there is no radiation views and pneumonitis. Also waiting for echocardiogram to rule out cardiac causes of cough. Thank you and we will follow with you. Laci Jason MD
[2019-04-24] MEDS: guaiFENesin DM 100 mg-10 mg/5 ml UD PO PRN ×3 (04:01→21:30)
--- NOTE | 2019-04-24 05:35 | CARD ---
APPROVED REPORT Date of service: 04/23/2019 EXAM: Two-dimensional and M-mode echocardiogram with Doppler and color Doppler. INDICATION Non STEMI 2D DIMENSIONS Left Atrium (2D)4.3 (1.6-4.0cm)IVSd1.2 (0.7-1.1cm) LVDd4.4 (3.9-5.9cm)PWd1.2 (0.7-1.1cm) LVDs2.9 (2.5-4.0cm)FS (%) 33.3 % LVEF (%)62.3 (>50%) M-Mode DIMENSIONS Aortic Root3.30 (2.2-3.7cm)Aortic Cusp Exc.1.80 (1.5-2.0cm) Aortic Valve AoV Peak Cdutmvri057.0cm/Bishop Peak GR.13mmHg Mitral Valve MV E Xqfwnkne21.8cm/sMV A Rxqcncqt970.0cm/sE/A ratio0.6 TDI Lateral E' Peak V7.60cm/sMedial E' Peak V7.21cm/sE/Lateral E'8.5 E/Medial E'9.0 Pulmonary Valve PV Peak Ljrppkoe98.7cm/sPV Peak Grad.3mmHg Tricuspid Valve TR Peak Znskvlux352il/sRAP DPYKXYVS04msUbQP Peak Gr.45mmHg [id number] LEFT VENTRICLE The left ventricle is normal size. There is mild concentric left ventricular hypertrophy. The left ventricular function is normal. The left ventricular ejection fraction is within the normal range. There is normal LV segmental wall motion. Tissue Doppler imaging reveals mild left ventricular diastolic dysfunction. RIGHT VENTRICLE The right ventricle is normal size. The right ventricular systolic function is normal. ATRIA The left atrium is mildly dilated. The right atrium is mildly dilated. The interatrial septum is intact with no evidence for an atrial septal defect. AORTIC VALVE The aortic valve is normal in structure. No aortic regurgitation is present. There is no aortic valvular stenosis. MITRAL VALVE The mitral valve is normal in structure. Mitral regurgitation is mild. TRICUSPID VALVE The tricuspid valve is normal in structure. There is mild tricuspid regurgitation. PULMONIC VALVE The pulmonary valve is normal in structure. GREAT VESSELS The aortic root is normal in size. The IVC is normal in size and collapses >50% with inspiration. PERICARDIAL EFFUSION There is no pleural effusion. There is no pericardial effusion. <Conclusion> Biatrial enlargement. Normal LV size and systolic function. Mild diastolic dysfunction. Mild concentric LVH. Midl MR and TR.
[2019-04-24] MEDS: Meropenem IV 1 gm in NS 1 GM/50 ML BAG IVPB SCH (06:32)
[2019-04-24] MEDS: Levothyroxine 125 MCG TAB PO SCH (06:33)
[2019-04-24 07:43] LABS: BASO # 0.07 K/mm3 (0.0-2.0); BASO % 1.5 % (0.0-3.0); EOS # 0.1 (0.0-0.7); EOS % 2.6 % (1.5-5.0); LYMPH # 1.9 (1.2-3.4); LYMPH % 41.7 % (22.0-35.0); MEAN CELL VOLUME 92.5 fl (80.0-105.0); MEAN CORPUSCULAR HEMOGLOBIN 30.4 pg (25.0-35.0); MEAN CORPUSCULAR HGB CONC 32.8 g/dl (31.0-37.0); MEAN PLATELET VOLUME 9.3 fl (7.0-11.0); MONO # 0.5 (0.1-0.6); MONO % 10.2 % (1.0-6.0); RBC 3.62 10^6/uL (3.5-6.1); RED CELL DISTRIBUTION WIDTH 13.8 % (11.5-14.5); WHITE BLOOD COUNT 4.6 10^3/uL (4.5-11.0)
[2019-04-24 07:56] LABS: ALBUMIN 3.4 g/dL (3.0-4.8); CALCIUM 8.2 mg/dL (8.4-10.5); TROPONIN I 0.94 ng/mL
[2019-04-24] MEDS: Enoxaparin 80 mg Syringe SC SCH ×2 (09:35→23:12)
[2019-04-24] MEDS: Metoprolol Succinate 100 mg XL Tab PO SCH (09:37)
[2019-04-24] MEDS: Pantoprazole 20 mg EC Tab PO SCH (09:38)
--- NOTE | 2019-04-24 09:46 | PN ---
DATE: 04/24/2019 SUBJECTIVE: The patient is seen lying in bed fossa sitting on chair on telemetry. She has had no chest pain. She continues to have a raspy nonproductive cough. She is afebrile. She denies any recurrent nausea or vomiting. CURRENT MEDICATIONS: Include doxycycline, Ecotrin, Lipitor 20 mg daily, Lovenox, meropenem, Pepcid, Plavix 75 mg daily, Protonix, Synthroid 125 mcg daily, Toprol XL 100 mg daily. OBJECTIVE: GENERAL: She is a elderly woman who appears comfortable at the present time. VITAL SIGNS: Blood pressure is 136/86 with a pulse of 70 and sinus, respirations of 14. She is afebrile. HEENT: No JVD. CHEST: Bilateral scattered rhonchi with faint wheezing. No rales noted. HEART: PMI normal position. Systolic murmur is present at the lower left sternal border and apex. ABDOMEN: Soft and mildly obese, nontender with normoactive bowel sounds. EXTREMITIES: No edema. DIAGNOSTIC DATA: The morning blood work is pending. Echocardiogram was reviewed and revealed evidence of biatrial enlargement, mild concentric LVH, normal LV size systolic function as well as mild mitral and tricuspid regurgitation. Followup troponin yesterday was 2.73. IMPRESSION: 1. Possible small clc-HZ-djchnmd elevation myocardial infarction, clinically stable at the present time. 2. Acute bronchitis with persistent cough. 3. History of breast cancer. 4. History of hypertension. 5. Mild mitral and tricuspid regurgitation. RECOMMENDATIONS: Continue conservative management as planned at the present time. Continued therapy with aspirin, Plavix, beta-tri, statin and Lovenox will proceed. The option of cardiac catheterization was again discussed with her. However, she prefers conservative management. A followup stress test will be arranged once her bronchitis is improved. Followup electrocardiogram is pending. I will continue to follow and make further recommendations as appropriate. Meño Espinoza MD
--- NOTE | 2019-04-24 10:44 | CARD ---
APPROVED REPORT Date of service: 04/24/2019 EKG Measurement Heart [id number] <Conclusion> Sinus bradycardia Right bundle branch block Abnormal ECG
--- NOTE | 2019-04-24 10:51 | CARD ---
APPROVED REPORT Date of service: 04/22/2019 EKG Measurement Heart [id number] <Conclusion> Normal sinus rhythm Right bundle branch block Lateral infarct, age undetermined Cannot rule out Inferior infarct, age undetermined Abnormal ECG
--- NOTE | 2019-04-24 12:04 | CT ---
Date of service: 04/23/2019 PROCEDURE: CT Chest without contrast HISTORY: chronic lung disease COMPARISON: None available. TECHNIQUE: Contiguous axial images were obtained through the chest without intravenous contrast enhancement. Sagittal and coronal reconstructions were performed. Radiation dose: Total exam DLP = 684.83 mGy-cm. This CT exam was performed using one or more of the following dose reduction techniques: Automated exposure control, adjustment of the mA and/or kV according to patient size, and/or use of iterative reconstruction technique. FINDINGS: LUNGS: Prominence of the interstitial markings with peripheral fibrotic changes. Scattered mosaic attenuation may represent areas of air trapping. Central airways clear. Visualized airway clear MEDIASTINUM: Aortic ectasia measuring 3.6 cm. Normal sized heart. Main pulmonary artery unremarkable. No vascular congestion. Multiple small prominent mediastinal lymph nodes. aortic atherosclerotic calcification. PLEURA: No pleural fluid. No pneumothorax. BONES: Chronic L1 vertebral compression fracture prior vertebral augmentation. No acute fracture. No destructive lesion. UPPER ABDOMEN: Grossly unremarkable. OTHER FINDINGS: None. IMPRESSION: Chronic interstitial changes with peripheral fibrotic changes and manifestations of COPD.
--- NOTE | 2019-04-24 16:39 | PN ---
DATE: 04/24/2019 LOCATION: The patient is seen in room 272, bed 1. SUBJECTIVE: The patient appears to be comfortable. No fevers. No chills. She appears to be improving. PHYSICAL EXAMINATION: GENERAL: The patient is in bed. VITAL SIGNS: Temperature of 98, heart rate of 73, and respiratory rate of 20. HEENT: Unremarkable. NECK: Supple. LUNGS: Have decreased breath sounds. HEART: Normal S1 and S2. ABDOMEN: Soft and nontender. No organomegaly. No rebound. No guarding. No masses. LABORATORY EXAMINATION: Reveals a white count of 4.6, hemoglobin of 11. BUN of 18, creatinine of 1.2. Troponin are elevated. Procalcitonin is negative. Microbiology reveals the blood cultures are negative. REVIEW OF ORDERS: Reveals the sputum cultures have not been collected. The patient is on p.o. doxycycline and IV meropenem. The patient had a CAT scan of the chest, official results are not available. The unofficial results are chronic interstitial changes which is moderate COPD, ground-glass appearance, upper lobe predominance, atelectasis. Dr. Jason's consultation is reviewed. ASSESSMENT AND PLAN: An 83-year-old female with appears, acute non-ST elevation myocardial infarction, leukopenia, and bronchitis with no evidence of a pneumonitis. We will discontinue the antibiotics. We will follow the patient off of antibiotics. Dr. Jason's note states the no pneumonitis is recognized in the CAT scan as an official reading. Dr. Espinoza's progress note is reviewed. Her etiology of the persistent cough is not entirely clear. The patient does have an echocardiogram which shows the left ventricular size to be normal. No aortic stenosis is noted. We will follow the patient off of antibiotics. We will follow with you. Jose Saini MD
--- NOTE | 2019-04-24 19:02 | PN ---
DATE: 04/24/2019 This is [facility] on the telemetry floor. For Dr. Bills. SUBJECTIVE: The patient is an 83-year-old female, seen sitting up in bed after evaluation earlier today by Dr. Espinoza of Cardiology for a possible small non-ST elevated myocardial infarction with abnormal troponin values. She reports her cough persists with evaluation by Dr. Jason of Pulmonology suggesting a CT scan with suspicion of possible radiation pneumonitis changes to be evaluated. Except for her cough, the patient feels well and is anxious for discharge once she is cleared by consultants as above. Family members were at the bedside. OBJECTIVE/PHYSICAL EXAMINATION: VITAL SIGNS: Temperature 98.2, pulse 61, respirations 20, blood pressure 155/78, and pulse ox 92%. HEENT: Unremarkable. NECK: Supple. HEART: Regular rate, faint 1/6 systolic ejection murmur. LUNGS: Occasional rhonchi. ABDOMEN: Obese, soft, and nontender. EXTREMITIES: No edema. SKIN: Warm and dry. NEUROLOGIC: Awake and alert. LABORATORY DATA: The patient's labs were done. White blood cell count 4.6, hemoglobin 11, hematocrit 33.5, and platelet count of 159 with a metabolic panel showing a normal metabolic panel except for an AST of 43 down from 50 yesterday with a troponin value reported at 0.9 down from 2.7 and down from 4.6 which was the high value two days prior. Her brain natriuretic peptide is 2820 down from 5700. Her procalcitonin value was 0.05 with a TSH of 0.29. Legionella testing was negative. The patient's blood cultures were negative at 24 hours. The patient did have a CT scan of her chest done yesterday, it was read has chronic interstitial changes with peripheral fibrotic changes and not of patient's COPD. Also the patient did have an EKG done earlier today; it was read as sinus bradycardia, right bundle-branch block, abnormal EKG. Also history of mitral and tricuspid regurgitation. ASSESSMENT: The assessment for this patient includes fdy-VT-cbajneyn myocardial infarction, history of gastroesophageal reflux disease, persistent cough/chronic obstructive pulmonary disease, possible radiation pneumonitis, stage III cancer of the breast in remission, atherosclerotic cardiovascular disease, spondylolisthesis, chronic back pain, osteopenia, and hypertension. PLAN: The plan for this patient is to continue present medical regimen with further testing to be carried out as per parts consultant's recommendations with cardiac catheterization on hold as per Dr. Espinoza with antibiotic now discontinued by Dr. Saini and further treatment as per Dr. Jason of Pulmonology. At present we will continue her Lovenox, Ecotrin, and Plavix until Dr. Espinoza of Cardiology recommends otherwise. This is a complex patient with a comprehensive medically necessary and appropriate visit carried out in excess of 40 minutes with the patient and her family members questions answered to their satisfaction. Orlando Piña MD
[2019-04-24] MEDS: MethylPREDNISolone 40 mg Vial IVP SCH ×2 (19:37→23:13)
[2019-04-24] MEDS ORDERED: Budesonide 0.5 mg/2 ml Inhal Susp UD IH SCH (20:00)
[2019-04-24] MEDS ORDERED: Arformoterol 15 mcg/2 ml Inh Sol IH SCH (20:00)
--- NOTE | 2019-04-24 20:15 | PN ---
DATE: 04/24/2019 PULMONARY PROGRESS NOTE REFERRING PHYSICIAN: Orlando Piña MD SUBJECTIVE: The patient is sitting up in the bed. Family is at bedside. Night was unremarkable. Has a persistent cough. No nausea, no vomiting, no diarrhea, leg pain or leg swelling. OBJECTIVE: GENERAL: In no acute distress. VITAL SIGNS: Temperature is 98, heart rate is 61, respiratory rate is 20, blood pressure 155/78, and pulse ox 92% on 2 liters nasal cannula. HEENT: Moist mucous membrane. Crowded airway. NECK: Supple. No JVD. LUNGS: Has a one-third up crackles and expiratory few wheezing. HEART: S1 and S2. ABDOMEN: Soft and nontender. No organomegaly. EXTREMITIES: No edema. NEUROLOGIC: Awake and follows simple commands. LABORATORY DATA: Shows hemoglobin 11, hematocrit 33.5, WBC 4.6, and platelet count is 159. She has a VBG done on admission that showed pH 7.46, pCO2 was 30, and O2 was 100. Sodium 133, potassium 4, chloride 103, bicarbonate 20, BUN is 18, creatinine 1.2, glucose is 100, and calcium is 8.2. Total bili 0.5, AST 43, ALT 15, and alk phos is 65. Troponin is 0.94. ProBNP 2820. Albumin is 3.4. Procalcitonin is 0.05. She had a CAT scan of the chest done, which shows chronic interstitial changes with peripheral fibrotic changes and manifestation of chronic obstructive lung disease. She also had an echocardiogram done, which shows good LV function. Right ventricular systolic pressure is 55. Mild diastolic dysfunction and mild concentric LVH. IMPRESSION AND PLAN: Probably chronic obstructive lung disease from a secondhand smoking. There is also cardiac diastolic dysfunction with pulmonary hypertension, history of breast cancer, been on radiation therapy, may be also radiation contributing to chronic interstitial lung disease, status post myocardial infarction with heart failure, also has a history of gastroesophageal reflux disease. Spoke to family at bedside. All the questions answered. I also spoke to Dr. Orlando Piña. We will add Solu-Medrol 20 mg every 8 hours, Zithromax 500 mg daily for chronic lung disease, Lasix 20 mg twice a day, sleep apnea precaution, and keep head 45 degrees. Continue gastric and deep venous thrombosis prophylaxis. We will suggest pulmonary function tests upon discharge as outpatient. She also has cardiac workup. Thank you and we will follow with you. Laci Jason MD
[2019-04-25] MEDS: Levothyroxine 125 MCG TAB PO SCH (06:46)
[2019-04-25] MEDS: MethylPREDNISolone 40 mg Vial IVP SCH (06:46)
[2019-04-25] MEDS: Metoprolol Succinate 100 mg XL Tab PO SCH (07:00)
[2019-04-25 07:06] LABS: BASO # 0.02 K/mm3 (0.0-2.0); BASO % 0.8 % (0.0-3.0); HEMOGLOBIN 11.7 g/dL (12.0-16.0); LYMPH # 0.7 (1.2-3.4); MEAN CELL VOLUME 91.1 fl (80.0-105.0); MEAN CORPUSCULAR HEMOGLOBIN 30.5 pg (25.0-35.0); MEAN CORPUSCULAR HGB CONC 33.5 g/dl (31.0-37.0); MEAN PLATELET VOLUME 9.5 fl (7.0-11.0); MONO # 0.1 (0.1-0.6); MONO % 2.3 % (1.0-6.0); RBC 3.83 10^6/uL (3.5-6.1); RED CELL DISTRIBUTION WIDTH 13.6 % (11.5-14.5); WHITE BLOOD COUNT 2.6 10^3/uL (4.5-11.0)
[2019-04-25 07:44] LABS: ALB/GLOB RATIO 0.9 (1.1-1.8); ALBUMIN 3.9 g/dL (3.0-4.8); CALCIUM 8.5 mg/dL (8.4-10.5)
[2019-04-25] MEDS ORDERED: Albuterol-Ipratrop 3 mg / 0.5 (3 ml) UD IH PRN (07:48)
--- NOTE | 2019-04-25 08:45 | PN ---
DATE: 04/25/2019 REFERRING PHYSICIAN: Orlando Piña MD SUBJECTIVE: The patient is seen lying in bed. No acute distress. No overnight events reported. The patient reports that yesterday, she refused nebulizer treatment and went into a coughing spell. Reports that she refused breathing treatments this morning, also stating that due to coughing spells she lost her voice a little bit. Does report that cough is better; however, when she first came in, no headache, rhinitis, chest pain, abdominal pain, nausea, vomiting, diarrhea, leg pain, or leg swelling reported. PHYSICAL EXAMINATION: VITAL SIGNS: Blood pressure 136/77, pulse 63, temperature 98.1, oxygen saturation 96% on room air. GENERAL: No acute distress. HEENT: Moist mucous membranes. Crowded airway. NECK: Supple. No JVD. LUNGS: She has scattered rhonchi. CARDIOVASCULAR: S1, S2. ABDOMEN: Soft and nontender. No distention. No organomegaly. EXTREMITIES: No bilateral lower extremity. NEUROLOGIC: Awake, alert, verbal. Following commands. MEDICATIONS: Reviewed. Tylenol 650 every 4 hours p.r.n., Brovana 15 mcg inhalation every 12 hours, aspirin 81 mg daily, Lipitor 20 mg at dinner, Zithromax 500 mg daily, Pulmicort 0.5 mg inhalation every 12 hours, Plavix 75 mg daily, Lovenox 40 mg subcutaneous daily, Pepcid 20 mg daily, Lasix 40 mg IV push every 12 hours, Robitussin 10 mL every 4 hours p.r.n., Synthroid 125 mcg daily, Solu-Medrol 20 mg every 8 hours, metoprolol succinate 100 at breakfast, morphine sulfate 1 mg IV push every 4 hours p.r.n., Zofran 10 mg IV push every 6 hours p.r.n., Protonix 20 mg, tramadol 50 mg every 8 hours p.r.n. LABORATORY DATA: Reviewed. WBC 3.6, RBC 3.83, hemoglobin 1.7, hematocrit 34.9, platelets 183. Sodium 133, potassium 4.5, chloride 103, carbon dioxide 18, anion gap 17, BUN 19, creatinine 1.1, GFR 48, random glucose 182, calcium 8.5, total bilirubin 0.7, AST 44, ALT 11, alkaline phosphatase 63, total protein 8.2, albumin 3.9, glucose 4.3, albumin-globulin ratio is 0.9, procalcitonin is 0.05. Blood cultures preliminary, no growth after 24 hours. EKG, sinus bradycardia. IMPRESSION AND PLAN: Probable chronic obstructive lung disease due to secondhand smoke, cardiac diastolic dysfunction, pulmonary hypertension, history of breast cancer, been on radiation therapy, radiation may also be contributing to chronic interstitial lung disease, status post myocardial infarction, heart failure, gastroesophageal reflux disease. Pulmonary point of view, continue antibiotic therapy, continue diuretics, sleep apnea precautions, head of bed elevated 45 degrees, gastric prophylaxis, deep venous thrombosis prophylaxis. Continue current steroid dosing. We will discontinue routine nebulizers and place patient on p.r.n. DuoNeb. We will give the patient Cepacol throat lozenge. We suggest the patient have full pulmonary function test as outpatient. Continue Cardiology followup. The patient was seen and examined with Dr. Jason. Discussed assessment and plan as described above. The patient was seen and examined by Delfina Hernández, nurse practitioner. Discussed assessment and plan as described above. Thank you for this consult. We will follow with you. Delfina Hernández APN Laci Jason MD
[2019-04-25] MEDS: Benzocaine/Menthol (Cepacol) Lozenge MT SCH ×4 (09:11→22:00)
[2019-04-25] MEDS: Enoxaparin 40 mg Syringe SC SCH (09:12)
[2019-04-25] MEDS: Pantoprazole 20 mg EC Tab PO SCH (09:12)
--- NOTE | 2019-04-25 09:22 | PN ---
DATE: 04/25/2019 SUBJECTIVE: The patient is in bed, in no acute distress, nontoxic. OBJECTIVE: VITAL SIGNS: Temperature is 97, blood pressure is 130/70, respiratory rate of 18. HEENT: Unremarkable. NECK: Supple. LUNGS: Have decreased breath sounds. HEART: Normal S1, S2. ABDOMEN: Soft, nontender. LABORATORY EXAMINATION: Reveals a white count of 4.6, hemoglobin of 11, platelets of 159. Chemistries, BUN of 18, creatinine of 1.2. Troponin is 0.94. Urine Legionella antigen is negative, and blood cultures are negative. Review of orders reveals the patient is on Solu-Medrol, and the patient is on Zithromax. Review of EKG revealed QTC is 582. ASSESSMENT AND PLAN: This is an 83-year-old female who was admitted with acute non-ST elevation myocardial infarction, leukopenia, bronchitis. No evidence of pneumonitis. We will discuss with Dr. Jason the use of Zithromax and EKG findings and QTC. Jose Saini MD
--- NOTE | 2019-04-25 09:51 | PN ---
DATE: 04/25/2019 SUBJECTIVE: The patient is seen lying in bed on telemetry. She is complaining of some hoarseness. Her cough is somewhat improved after initiation of steroid therapy. She denies any chest pain. CURRENT MEDICATIONS: Include Brovana, Ecotrin, Lasix 20 mg IV every 12 hours, Lipitor, Lovenox, Pepcid, Plavix 75 mg daily, Protonix, Pulmicort inhaler, Solu-Medrol, Synthroid, Toprol XL 100 mg daily, Zithromax. OBJECTIVE: GENERAL: She is a elderly woman who appears comfortable at rest. VITAL SIGNS: Blood pressure is 136/76 with pulse of 60 and sinus, respirations are 16. She is afebrile. HEENT: No JVD. CHEST: Bilateral scattered rhonchi heard. HEART: PMI displaced laterally with soft systolic murmur at apex. ABDOMEN: Soft, nontender with bowel sounds. EXTREMITIES: No edema. DIAGNOSTIC DATA: Morning blood work is pending. IMPRESSION: 1. Possible small [id number] elevation myocardial fraction upon admission, appears clinically stable. 2. Acute bronchitis improved with steroids. 3. History of hypertension. 4. Mild mitral and tricuspid regurgitation. 5. History of breast cancer. RECOMMENDATIONS: Continue conservative cardiac management as advised at this time. Followup stress test will be planned once her pulmonary status has improved. Lovenox can be switched to a DVT prophylaxis dosing at this time. The rest of medications will continue unchanged. I will continue to follow and make further recommendations as appropriate. Meño Espinoza MD
[2019-04-25] MEDS: guaiFENesin DM 100 mg-10 mg/5 ml UD PO PRN ×2 (14:07→20:58)
[2019-04-26] MEDS: Levothyroxine 125 MCG TAB PO SCH (05:39)
[2019-04-26 06:55] LABS: BASO # 0.01 K/mm3 (0.0-2.0); BASO % 0.2 % (0.0-3.0); EOS % 0.6 % (1.5-5.0); HEMOGLOBIN 10.8 g/dL (12.0-16.0); LYMPH # 0.9 (1.2-3.4); LYMPH % 13.3 % (22.0-35.0); MEAN CORPUSCULAR HEMOGLOBIN 30.5 pg (25.0-35.0); MEAN CORPUSCULAR HGB CONC 33.5 g/dl (31.0-37.0); MEAN PLATELET VOLUME 9.3 fl (7.0-11.0); MONO # 0.4 (0.1-0.6); MONO % 6.7 % (1.0-6.0); RBC 3.54 10^6/uL (3.5-6.1); RED CELL DISTRIBUTION WIDTH 13.5 % (11.5-14.5); WHITE BLOOD COUNT 6.5 10^3/uL (4.5-11.0)
[2019-04-26 07:40] LABS: ALB/GLOB RATIO 0.9 (1.1-1.8); ALBUMIN 3.6 g/dL (3.0-4.8); CALCIUM 8.5 mg/dL (8.4-10.5)
--- NOTE | 2019-04-26 08:21 | PN ---
DATE: 04/25/2019 This is [facility] visit on the telemetry floor. For Dr. Bills. SUBJECTIVE: The patient is 83-year-old female seen sitting up in bed. Reporting that her cough is minimally improved after steroids were started and treatment as per Dr. Jason. She also has elevated troponin with non-ST elevated IA suspected and continues on Lovenox and decreased dose as per Dr. Espinoza. She had episode of loose stool today. However, it is not repeated since then. OBJECTIVE/PHYSICAL EXAMINATION: VITAL SIGNS: Temperature 98, pulse 60, respirations 19, blood pressure 120/82 and with a pulse ox of 93%. HEENT: Unremarkable. NECK: Supple. HEART: Regular rate, faint I/ systolic ejection murmur. LUNGS: Occasional rhonchi. ABDOMEN: Soft. EXTREMITIES: No edema. SKIN: Warm and dry. NEUROLOGIC: Awake and alert. LABORATORY DATA: The patient's labs were done, white blood cell count of 2.6, hemoglobin 11.7, hematocrit 34.9 and platelet count of 183,000. With a metabolic panel showing a nonfasting glucose of 182, AST 44 otherwise normal metabolic panel. The patient's blood cultures were negative. Sputum culture is pending. ASSESSMENT: For this patient, is that of acute bronchitis, non-ST elevated myocardial infarction, chronic obstructive pulmonary disease, leukopenia, pulmonary hypertension, breast cancer history, gastroesophageal reflux disease, persistent cough, atherosclerotic coronary artery disease, spondylolisthesis, chronic back pain, osteopenia and hypertension. PLAN: For this patient is to continue recommendations as per consultants as above. However, the patient did have problems of IV access and her medications were changed from parenteral to oral as possible, should the IV access be regained that her steroids and her Lasix would be resumed, intravenous as indicated. This is a complex patient with a comprehensive medically necessary and appropriate visit carried out in excess of 20 minutes with the patient and nursing staff questions answered to their satisfaction. Orlando Piña MD
[2019-04-26] MEDS: Enoxaparin 40 mg Syringe SC SCH (09:27)
[2019-04-26] MEDS: guaiFENesin DM 100 mg-10 mg/5 ml UD PO PRN ×2 (09:28→23:26)
[2019-04-26] MEDS: Metoprolol Succinate 100 mg XL Tab PO SCH (09:29)
[2019-04-26] MEDS: Benzocaine/Menthol (Cepacol) Lozenge MT SCH ×4 (09:35→21:44)
--- NOTE | 2019-04-26 12:14 | PN ---
DATE: 04/26/2019 PULMONARY PROGRESS NOTE REFERRING PHYSICIAN: Orlando Piña MD SUBJECTIVE: The patient is seen lying in bed. No acute distress. No overnight events reported. Reports that she still has some cough. No headache, rhinitis, shortness of breath, chest pain, abdominal pain, nausea, vomiting, diarrhea, leg pain, or leg swelling reported. OBJECTIVE: VITAL SIGNS: Blood pressure 155/77, pulse 60, temperature 97.3, oxygen saturation 97% on nasal cannula. GENERAL: No acute distress. HEENT: Moist mucous membranes. Crowded airway. NECK: Supple. No JVD. LUNGS: Rhonchi bilaterally. CARDIOVASCULAR: S1, S2. ABDOMEN: Soft, nontender. No distention. No organomegaly. EXTREMITIES: No bilateral lower extremity edema. NEUROLOGIC: Awake, alert, verbal. Following commands. MEDICATIONS: Reviewed. Tylenol 650 every 4 hours p.r.n. mild pain, DuoNeb 3 mL solution every 6 hours p.r.n., aspirin 81 mg daily, Lipitor 20 mg at dinner, Cepacol four times a day, Plavix 75 mg daily, Lovenox 40 mg subcutaneous daily, Pepcid 20 mg twice a day, Lasix 40 mg daily, Robitussin DM 10 mL every 4 hours p.r.n., Synthroid 125 mcg daily, metoprolol succinate 100 mg at breakfast, Zofran 2 mg IV push every 6 hours p.r.n., prednisone 20 mg twice a day, tramadol 50 mg every 8 hours p.r.n. LABORATORY DATA: Reviewed. WBC 6.5, RBC 3.54, hemoglobin 10.8, hematocrit 32.2, platelets 182. Sodium 134, potassium 4.1, chloride 103, carbon dioxide 23, anion gap 14, BUN 27, creatinine 1.3, GFR 39, random glucose 120, calcium 8.5. Total bilirubin 0.4, AST 33, ALT 21, alkaline phosphatase 66, total protein 7.4, albumin 3.6, globulin 3.8, albumin-globulin ratio is 0.9. Blood cultures preliminary, no growth after three days. IMPRESSION AND PLAN: Chronic obstructive lung disease probable due to secondhand smoke, cardiac diastolic dysfunction, pulmonary hypertension, history of breast cancer, been on radiation therapy which may possibly be contributing to chronic interstitial lung disease, status post non-ST elevation myocardial infarction, heart failure, gastroesophageal reflux disease. Pulmonary point of view, we will place the patient on Zithromax 250 mg daily for chronic lung disease understanding that Zithromax 500 mg daily was discontinued due to concerns regarding QTc on EKG. We will continue to monitor the patient on patient monitor and start the patient on decreased dose of Zithromax. Continue gastric prophylaxis, deep venous thrombosis prophylaxis, sleep apnea precautions, head of bed elevated 45 degrees. Continue steroid dosing. Continue as-needed nebulizers, as the patient has reported not tolerating routine nebulizer treatments. Continue Cardiology followup. Recommend the patient a full pulmonary function test as outpatient. The patient was seen and examined with Dr. Jason. Discussed assessment and plan as described above. The patient was seen and examined by Delfina Hernández nurse practitioner. Discussed assessment and plan as described above. Thank you for this consult. We will follow with you. Delfina Hernández APN Laci Jason MD [facility]
[2019-04-26 12:23] VITALS: RESP 19
--- NOTE | 2019-04-26 12:44 | PN ---
DATE: 04/26/2019 SUBJECTIVE: The patient is seen lying in bed on telemetry. She is feeling somewhat better, although she feels that her cough worsened overnight. Her hoarseness has improved. She denies any chest pain. MEDICATIONS: DuoNeb inhaler, Ecotrin, Lasix 20 mg every 12 hours, Lipitor 20 mg daily, Lovenox, Pepcid, Plavix 75 mg daily, prednisone 20 mg b.i.d., Synthroid, Toprol XL 100 mg daily, Zithromax. OBJECTIVE: GENERAL: She is an elderly woman who appears comfortable at rest. VITAL SIGNS: Her blood pressure is 156/76, pulse of 60, respirations are 14. She is afebrile. HEENT: No JVD. CHEST: Few scattered rhonchi heard. HEART: PMI displaced laterally with a systolic murmur at the left sternal border. ABDOMEN: Soft, nontender with bowel sounds. EXTREMITIES: No edema. DIAGNOSTIC DATA: White count 6.5, hemoglobin and hematocrit 10.8 and 32.2, and platelet count 182,000. Her EKG revealed sinus rhythm with right bundle-branch block and QT prolongation. IMPRESSION: 1. Recent small amount of ST-segment elevation myocardial infarction, clinically stable at the present time. 2. Acute bronchitis, gradually improving. 3. History of hypertension. 4. History of breast cancer. 5. Mild mitral and tricuspid regurgitation. 6. QT prolongation appears significant even when accounting for right bundle branch block pattern with an increased 80 milliseconds over her baseline. Zithromax should be discontinued and all her agents which could potentially cause QT prolongation that should be avoided. RECOMMENDATION: Current medications will continue for now. Conservative cardiac management is planned. Furosemide will be changed to once daily dosing. Outpatient followup will be arranged and eventual stress tests planned at that time after resolution of her pulmonary issues. From a cardiac standpoint, she is stable for discharge home once medically cleared. Meño Espinoza MD
--- NOTE | 2019-04-26 14:43 | PN ---
DATE: 04/26/2019 SUBJECTIVE: The patient is in bed in no acute distress, was seen earlier today is 272, bed 1. PHYSICAL EXAMINATION: VITAL SIGNS: Temperature is 97, blood pressure is 137/70, respiratory rate of 18, heart rate of 60. HEENT: Unremarkable. NECK: Supple. LUNGS: Have decreased breath sounds. HEART: Normal S1, S2. ABDOMEN: Soft. LABORATORY EXAMINATION: Reveals a white count of 6.5, hemoglobin is 10, platelets of 182. BUN of 27, creatinine of 1.3. Troponin is 0.94. Serology is noted. Microbiology and blood cultures are negative. ASSESSMENT AND PLAN: This is an 83-year-old female who was admitted with acute non-ST elevation myocardial infarction, leukopenia, bronchitis, she has completed antibiotic therapy. No evidence of pneumonitis. We will discuss with pulmonary regarding the use of Zyvox in this patient. At this point Zyvox has been discontinued. We will follow with you. Jose Saini MD
[2019-04-27] MEDS: Levothyroxine 125 MCG TAB PO SCH (05:57)
[2019-04-27 06:25] VITALS: TEMP 97.9; O2SAT 96
[2019-04-27] MEDS: Metoprolol Succinate 100 mg XL Tab PO SCH (09:00)
[2019-04-27] MEDS: Enoxaparin 40 mg Syringe SC SCH (09:01)
[2019-04-27] MEDS: Benzocaine/Menthol (Cepacol) Lozenge MT SCH (09:02)
--- NOTE | 2019-04-27 09:07 | CP.PCM.PN ---
<Ivan Carlin Mike - Last Filed: 04/27/19 09:02> Subjective - Date & Time of Evaluation Date of Evaluation: 04/26/19 Time of Evaluation: 09:02 - Subjective Subjective: Heme/Onc progress note - Tesfaye PGY - 2 Patient seen and examined at bedside. Objective - Vital Signs/Intake and Output Vital Signs (last 24 hours): Temp Pulse Resp BP Pulse Ox 97.9 F 65 19 148/76 96 04/27/19 06:00 04/27/19 09:00 04/27/19 06:00 04/27/19 09:00 04/27/19 06:00 Intake and Output: 04/27/19 04/27/19 06:59 18:59 Intake Total 420 Balance 420 - Medications Medications: Current Medications Acetaminophen (Tylenol 325mg Tab) 650 mg PO Q4 PRN PRN Reason: Pain, Mild (1-3) Albuterol/Ipratropium (Duoneb 3 Mg/0.5 Mg (3 Ml) Ud) 3 ml IH [id number] PRN PRN Reason: Shortness of Breath Aspirin (Ecotrin) 81 mg PO DAILY [facility] Last Admin: 04/27/19 09:01 Dose: 81 mg Atorvastatin Calcium (Lipitor) 20 mg PO DIN [facility] Last Admin: 04/26/19 17:38 Dose: 20 mg Benzocaine/Menthol (Cepacol Sore Throat) 1 kailash MT QID [facility] Last Admin: 04/27/19 09:02 Dose: Not Given Clopidogrel Bisulfate (Plavix) 75 mg PO DAILY [facility] Last Admin: 04/27/19 09:01 Dose: 75 mg Enoxaparin Sodium (Lovenox) 40 mg SC DAILY [facility]; Protocol Last Admin: 04/27/19 09:01 Dose: 40 mg Famotidine (Pepcid) 20 mg PO 1000,2200 [facility] Last Admin: 04/27/19 09:01 Dose: 20 mg Furosemide (Lasix) 40 mg PO DAILY [facility] Last Admin: 04/27/19 09:00 Dose: 40 mg Guaifenesin/Dextromethorphan (Robitussin Dm) 10 ml PO Q4H PRN PRN Reason: Cough Last Admin: 04/26/19 23:26 Dose: 10 ml Levothyroxine Sodium (Synthroid) 125 mcg PO 0600 [facility] Last Admin: 04/27/19 05:57 Dose: 125 mcg Metoprolol Succinate (Toprol Xl) 100 mg PO BRK [facility] Last Admin: 04/27/19 09:00 Dose: 100 mg Ondansetron HCl (Zofran Inj) 2 mg IVP Q6H PRN PRN Reason: Nausea/Vomiting Prednisone (Prednisone Tab) 20 mg PO BID [facility] Last Admin: 04/27/19 09:01 Dose: 20 mg Tramadol HCl (Ultram) 50 mg PO Q8H PRN PRN Reason: Pain, moderate (4-7) - Labs Labs: 04/26/19 06:15 04/26/19 06:15 PT 14.0 SECONDS (9.4-12.5) H 04/23/19 07:00 INR 1.24 04/23/19 07:00 - Constitutional Appears: Well - Head Exam Head Exam: ATRAUMATIC, NORMAL INSPECTION, NORMOCEPHALIC - Eye Exam Eye Exam: EOMI, Normal appearance, PERRL Pupil Exam: NORMAL ACCOMODATION, PERRL - ENT Exam ENT Exam: Mucous Membranes Moist, Normal Exam - Neck Exam Neck Exam: Full ROM, Normal Inspection. absent: Lymphadenopathy - Respiratory Exam Respiratory Exam: Clear to Ausculation Bilateral, NORMAL BREATHING PATTERN - Cardiovascular Exam Cardiovascular Exam: REGULAR RHYTHM, +S1, +S2. absent: Murmur - GI/Abdominal Exam GI & Abdominal Exam: Soft, Normal Bowel Sounds. absent: Tenderness - Extremities Exam Extremities Exam: Full ROM, Normal Capillary Refill, Normal Inspection. absent: Joint Swelling, Pedal Edema - Back Exam Back Exam: NORMAL INSPECTION - Neurological Exam Neurological Exam: Alert, Awake, CN II-XII Intact, Normal Gait, Oriented x3 - Psychiatric Exam Psychiatric exam: Normal Affect, Normal Mood - Skin Skin Exam: Dry, Intact, Normal Color, Warm Assessment and Plan - Assessment and Plan (Free Text) Assessment: 83 year old female with history of breast CA and Pulm HTN presents with NSTEMI. Enzymes are better now; no plans for cath in patient. # NSTEMI # COPD vs Cardiac Asthma # Leukopenia # Breast CA hx # Pulm HTN # QT Prolongation - Continue Lasix, steroids, ACEP, Duonebs, Lipitor, Plavix, Lovenox 40, Pepcid, Synthroid, Toprol XL,Zofran, - ECHO: Mild MR, TR, ECHO - 62%. Will not do cath at this time - Stop antibiotics for now - will monitor patient off of antibiotcs for one day - Rx given for Steroid Taper, Ellipta, and Albuterol rescue inhaler - Patient should get: --> DLCO, PFT's, and Stress test outpatient <Eliseo Bills - Last Filed: 04/27/19 19:38> Objective - Vital Signs/Intake and Output Vital Signs (last 24 hours): Temp Pulse Resp BP Pulse Ox 97.9 F 65 19 150/77 96 04/27/19 12:00 04/27/19 14:00 04/27/19 12:00 04/27/19 12:00 04/27/19 06:00 - Labs Labs: 04/26/19 06:15 04/26/19 06:15 PT 14.0 SECONDS (9.4-12.5) H 04/23/19 07:00 INR 1.24 04/23/19 07:00 Attending/Attestation - Attestation I have personally seen and examined this patient.: Yes I have fully participated in the care of the patient.: Yes I have reviewed all pertinent clinical information, including history, physical exam and plan: Yes
--- NOTE | 2019-04-27 10:15 | PN ---
DATE: 04/27/2019 SUBJECTIVE: The patient is in bed in no acute distress, nontoxic. PHYSICAL EXAMINATION: VITAL SIGNS: Temperature is 97, blood pressure is 170/70, respiratory rate of 18. HEENT: Unremarkable. NECK: Supple. LUNGS: Have decreased breath sounds. HEART: Normal S1 and S2. ABDOMEN: Soft. LABORATORY DATA: Reveals a white count of 6.5, hemoglobin of 10. Chemistries are noted. Creatinine is 1.3, troponin 0.94. Procalcitonin is negative x2. Microbiology reveals the blood cultures are negative. MEDICATIONS: Review of orders reveals the patient to be on prednisone, off of antibiotics. ASSESSMENT AND PLAN: This is an 83-year-old female who was admitted with acute non-ST elevation myocardial infarction, leukopenia, bronchitis, to complete antibiotic therapy, currently off of antibiotics. The patient is at risk for developing nosocomial infections. Jose Saini MD
[2019-04-27 12:21] VITALS: BP 150/77
[2019-04-27] MEDS: guaiFENesin DM 100 mg-10 mg/5 ml UD PO PRN (12:37)
[2019-04-27 14:37] VITALS: PULSE 65
--- NOTE | 2019-04-27 15:19 | PN ---
DATE: 04/27/2019 PULMONARY PROGRESS NOTE REFERRING PHYSICIAN: Orlando Piña MD SUBJECTIVE: She is sitting up in a bed. Night was unremarkable. Feels better. Decreased cough. No nausea, vomiting, diarrhea, leg pain or leg swelling. OBJECTIVE: GENERAL: In no acute distress. VITAL SIGNS: Temperature 98, heart rate 65 ,respiratory rate 20, blood pressure 148/76, 96% on room air. HEENT: Moist mucous membranes. Crowded airway. NECK: Supple. No JVD. LUNGS: Has bibasilar crackles. HEART: S1 and S2. ABDOMEN: Soft and nontender. No organomegaly. EXTREMITIES: No edema. NEUROLOGIC: Awake and alert. Follow simple commands. MEDICATIONS: She is on DuoNeb every 6 hours p.r.n., Ecotrin 81 mg daily, Lasix 40 mg daily, Lipitor 20 mg daily, Lovenox 40 mg subcutaneous daily, Pepcid 20 mg twice a day, Plavix 75 mg daily, prednisone 20 mg daily, Robitussin p.r.n. basis, Synthroid 125 mcg daily, Toprol-XL 100 mg daily, Tylenol p.r.n., Ultram 50 mg every 8 hours p.r.n. and Zofran p.r.n. basis. LABORATORY DATA: Reviewed and noted. No new lab is available since yesterday. Microbiology, blood cultures has been negative. IMPRESSION AND PLAN: Chronic obstructive lung disease secondary to passive smoking, also having cardiac diastolic dysfunction, history of breast cancer, requiring radiation therapy, pneumonitis with some interstitial lung disease, status post non-ST elevation myocardial infarction, heart failure, mostly diastolic, gastroesophageal reflux disease. Case discussed with Dr. Bills in detail. Discontinue planning. Zithromax was discontinued because of fear of QT interval increase. From a pulmonary point of view, continue tapered dose of steroids, outpatient make Trelegy Ellipta 1 puff daily, rescue inhaler p.r.n. Attended sleep study also and PFT as outpatient. Out of bed to chair. Physical therapy before discharge to assure this is safe discharge. Thank you and we will follow with you. Laci Jason MD [facility] # [phone]
--- NOTE | 2019-04-28 07:32 | CP.PCM.DIS ---
<Ivan Carlin - Last Filed: 04/28/19 07:32> Provider - Provider Date of Admission: 04/22/19 14:33 Attending physician: Orlando Piña MD Primary care physician: Catarina Schwab MD Consults: 04/22/19 15:32 Physician Consult Routine Comment: Consulting Provider: Meño Espinoza Consulting Physician: Meño Espinoza Reason for Consult: elevated troponin eval please 04/22/19 15:34 Consult [Physician Consult] Routine Comment: Consulting Provider: Laci Jason Consulting Physician: Laci Jason Reason for Consult: cough 04/22/19 15:35 Consult [Physician Consult] Routine Comment: Consulting Provider: Jose Saini Consulting Physician: Jose Saini Reason for Consult: cough 04/22/19 23:21 Case Management Referral Routine Comment: NEEDS ASSISTANCE AT HOME Physician Instructions: Reason For Exam: EVALUATION 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 Measures Referral Routine Comment: NSTEMI,CHF Physician Instructions: Reason For Exam: EVALUATION Transition In Care/Readmission Reduction Routine Comment: Physician Instructions: Reason For Exam: EVALUATION 04/22/19 23:24 Social Work Referral Routine Comment: NEEDS ASSISTNCE AT E Physician Instructions: Reason For Exam: EVALUATION Time Spent in preparation of Discharge (in minutes): 45 Diagnosis - Discharge Diagnosis (1) NSTEMI (non-ST elevated myocardial infarction) Status: Resolved Hospital Course - Lab Results Lab Results: Micro Results 04/23/19 08:12 Blood-Venous Blood Culture - Preliminary NO GROWTH AFTER 4 DAYS 04/23/19 08:00 Blood-Venous Blood Culture - Preliminary NO GROWTH AFTER 4 DAYS Most Recent Lab Values WBC 6.5 10^3/uL (4.5-11.0) D 04/26/19 06:15 RBC 3.54 10^6/uL (3.5-6.1) 04/26/19 06:15 Hgb 10.8 g/dL (12.0-16.0) L 04/26/19 06:15 Hct 32.2 % (36.0-48.0) L 04/26/19 06:15 MCV 91.0 fl (80.0-105.0) 04/26/19 06:15 MCH 30.5 pg (25.0-35.0) 04/26/19 06:15 MCHC 33.5 g/dl (31.0-37.0) 04/26/19 06:15 RDW 13.5 % (11.5-14.5) 04/26/19 06:15 Plt Count 182 10^3/uL (120.0-450.0) 04/26/19 06:15 MPV 9.3 fl (7.0-11.0) 04/26/19 06:15 Neut % (Auto) 79.2 % (50.0-68.0) H 04/26/19 06:15 Lymph % (Auto) 13.3 % (22.0-35.0) L 04/26/19 06:15 [place] % (Auto) 6.7 % (1.0-6.0) H 04/26/19 06:15 Eos % (Auto) 0.6 % (1.5-5.0) L 04/26/19 06:15 Baso % (Auto) 0.2 % (0.0-3.0) 04/26/19 06:15 Lymph # (Auto) 0.9 (1.2-3.4) L 04/26/19 06:15 [place] # (Auto) 0.4 (0.1-0.6) 04/26/19 06:15 Eos # (Auto) 0.0 (0.0-0.7) 04/26/19 06:15 Baso # (Auto) 0.01 K/mm3 (0.0-2.0) 04/26/19 06:15 Absolute Neuts (auto) 5.16 (1.4-6.5) 04/26/19 06:15 PT 14.0 SECONDS (9.4-12.5) H 04/23/19 07:00 INR 1.24 04/23/19 07:00 pO2 100 mm/Hg (30-55) H 04/22/19 16:20 VBG pH 7.46 (7.32-7.43) H 04/22/19 16:20 VBG pCO2 30.0 (40-60) L 04/22/19 16:20 VBG HCO3 21.3 mmol/l (21-28) 04/22/19 16:20 VBG Total CO2 22.2 mmol.L (22-28) 04/22/19 16:20 VBG O2 Sat (Calc) 99.4 % (40-65) H 04/22/19 16:20 VBG Base Excess -1.5 mmol/L (0.0-2.0) L 04/22/19 16:20 VBG Potassium 3.9 mmol/L (3.6-5.2) 04/22/19 16:20 Sodium 130.0 mmol/L (132-148) L 04/22/19 16:20 Chloride 101.0 mmol/L (98-107) 04/22/19 16:20 Glucose 94 mg/dl (65-105) 04/22/19 16:20 Lactate 1.1 mmol/L (0.7-2.1) 04/22/19 16:20 FiO2 21.0 % 04/22/19 16:20 Sodium 134 mmol/L (132-148) 04/26/19 06:15 Potassium 4.1 mmol/L (3.6-5.0) 04/26/19 06:15 Chloride 102 mmol/L (98-107) 04/26/19 06:15 Carbon Dioxide 23 mmol/L (21-33) 04/26/19 06:15 Anion Gap 14 (10-20) 04/26/19 06:15 BUN 27 mg/dL (7-21) H 04/26/19 06:15 Creatinine 1.3 mg/dl (0.7-1.2) H 04/26/19 06:15 Est GFR ( Amer) 48 04/26/19 06:15 Est GFR (Non-Af Amer) 39 04/26/19 06:15 Random Glucose 120 mg/dL (70-110) H 04/26/19 06:15 Calcium 8.5 mg/dL (8.4-10.5) 04/26/19 06:15 Magnesium 1.8 mg/dL (1.7-2.2) 04/22/19 13:15 Total Bilirubin 0.4 mg/dL (0.2-1.3) 04/26/19 06:15 AST 33 U/L (14-36) 04/26/19 06:15 ALT 21 U/L (7-56) 04/26/19 06:15 Alkaline Phosphatase 66 U/L (38-126) 04/26/19 06:15 Lactate Dehydrogenase 658 U/L (333-699) 04/22/19 13:15 Total Creatine Kinase 161 U/L (35-230) 04/22/19 13:15 Troponin I 0.94 ng/mL H* D 04/24/19 07:00 NT-Pro-B Natriuret Pep 2820 pg/mL (0-450) H 04/24/19 07:00 Total Protein 7.4 g/dL (5.8-8.3) 04/26/19 06:15 Albumin 3.6 g/dL (3.0-4.8) 04/26/19 06:15 Globulin 3.8 gm/dL 04/26/19 06:15 Albumin/Globulin Ratio 0.9 (1.1-1.8) L 04/26/19 06:15 Procalcitonin 0.05 NG/ML (0.19-0.49) L 04/24/19 07:00 TSH 3rd Generation 0.29 mIU/mL (0.46-4.68) L 04/23/19 07:00 Venous Blood Potassium 3.9 mmol/L (3.6-5.2) 04/22/19 16:20 HIV 1&2 Ag/Ab, 4th Gen Nonreactive (Nonreactive) 04/23/19 07:00 Influenza Typ A,B (EIA) Negative for flu a/b (NEGATIVE) 04/26/19 14:15 Ur L.pneumophila Ag Negative (NEGATIVE) 04/23/19 05:30 - Hospital Course Hospital Course: 83 F presented to [facility] on 04[place] with complaints of a cough that started one week prior to presentation. Patient had also had a bout of vomiting on day of presentation. Throughout hospital course, patient was found to have an NSTEMI. An ECHO was done which showed Mild MR, TR, EF of 62%; of note, BNP was elevated above 1600. EKG did not show any ERIK. Patient was evaluated by both cardiology and pulmonlogy; cardiology recommended an outpatient stress test and patient did not need to be cath'd. Pulmonology started patient on steroids and duonebs, with outpatient follow up as well as Zithromax for the inflammation. However, the Zithromax was stopped prematurely 2/2 patient developing QT prolongation. On day of discharge, patient was medically stable and optimized; all questions were answered thoroughly and Rx's sent to [facility] in [place]. Patient was discharged with: - Aspirin [Ecotrin] 81 mg PO DAILY #30 tab - Atorvastatin [Lipitor] 20 mg PO DIN #30 tab - Clopidogrel [Plavix] 75 mg PO DAILY #30 tab - Furosemide [Lasix] 40 mg PO DAILY #30 tab - Levothyroxine [Synthroid] 125 mcg PO 0600 #30 tab - Metoprolol Succinate XL [Toprol XL] 100 mg PO BRK #30 tab - Omeprazole Magnesium [Prilosec Otc] 20 mg PO DAILY #30 tab - Ellipta Trelegy inhaler 1 puff daily - Albuterol/Ventolin inhaler 2 puffs q6h PRN - Medrol dose pack Discharge Exam - Head Exam Head Exam: ATRAUMATIC, NORMAL INSPECTION, NORMOCEPHALIC - Eye Exam Eye Exam: EOMI, Normal appearance, PERRL Pupil Exam: NORMAL ACCOMODATION - Respiratory Exam Respiratory Exam: Clear to PA & Lateral, NORMAL BREATHING PATTERN, UNREMARKABLE - Cardiovascular Exam Cardiovascular Exam: REGULAR RHYTHM, +S1, +S2. absent: Diastolic murmur, Systolic Murmur - GI/Abdominal Exam GI & Abdominal Exam: Normal Bowel Sounds, Unremarkable - Extremities Exam Extremities exam: full ROM - Back Exam Back exam: FULL ROM - Neurological Exam Neurological exam: CN II-XII Intact, Normal Gait, Oriented x3, Reflexes Normal - Psychiatric Exam Psychiatric exam: Normal Affect, Normal Mood - Skin Skin Exam: Dry, Intact, Normal Color, Warm Discharge Plan - Discharge Medications Prescriptions: Aspirin [Ecotrin] 81 mg PO DAILY #30 tabec Atorvastatin [Lipitor] 20 mg PO DIN #30 tab Clopidogrel [Plavix] 75 mg PO DAILY #30 tab Furosemide [Lasix] 40 mg PO DAILY #30 tab Levothyroxine [Synthroid] 125 mcg PO 0600 #30 tab Metoprolol Succinate XL [Toprol XL] 100 mg PO BRK #30 tab Omeprazole Magnesium [Prilosec Otc] 20 mg PO DAILY #30 tablet.dr - Follow Up Plan Condition: GUARDED Disposition: HOME/ ROUTINE Instructions: Heart Attack, Heart Failure, Adult, Heart Failure (DC), Heart Failure (GEN), Pacemaker (DC), Pacemaker (GEN), Pulmonary Edema (DC), Pulmonary Edema (GEN), Ascites (DC), Ascites (GEN) Additional Instructions: Please take your new medications as prescribed Please make sure that you take your new medication, Plavix, EVERYDAY! Please perform the following tasks as an outpatient: --> DLCO - A special oxygen diffusion test (from your nutritional assistant) --> PFT's - Pulmonary Function Tests (from your nutritional assistant --> Stress Test - To measure the capabilities of your heart (from your software developer) Please Follow up with your nutritional assistant, Dr. Jason, within 1 week Please Follow up with your software developer, Dr. Espinoza, within 1 week Please Follow up with Dr. Bills within 1 week. Referrals: Meño Espinoza MD [Staff Provider] - Eliseo Bills MD [Staff Provider] - Zaheer WILDER,Catarina Patrick [Primary Care Provider] - Laci Jason MD [Staff Provider] - <Eliseo Bills - Last Filed: 04/28/19 22:49> Provider - Provider Date of Admission: 04/22/19 14:33 Attending physician: Orlando Piña MD Primary care physician: aCtarina Schwab MD Consults: 04/22/19 15:32 Physician Consult Routine Comment: Consulting Provider: Meño Espinoza Consulting Physician: Meño Espinoza Reason for Consult: elevated troponin eval please 04/22/19 15:34 Consult [Physician Consult] Routine Comment: Consulting Provider: Laci Jason Consulting Physician: Laci Jason Reason for Consult: cough 04/22/19 15:35 Consult [Physician Consult] Routine Comment: Consulting Provider: Jose Saini Consulting Physician: Jose Saini Reason for Consult: cough 04/22/19 23:21 Case Management Referral Routine Comment: NEEDS ASSISTANCE AT HOME Physician Instructions: Reason For Exam: EVALUATION 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 Measures Referral Routine Comment: NSTEMI,CHF Physician Instructions: Reason For Exam: EVALUATION Transition In Care/Readmission Reduction Routine Comment: Physician Instructions: Reason For Exam: EVALUATION 04/22/19 23:24 Social Work Referral Routine Comment: NEEDS ASSISTNCE AT HME Physician Instructions: Reason For Exam: EVALUATION Hospital Course - Lab Results Lab Results: Micro Results 04/23/19 08:12 Blood-Venous Blood Culture - Final NO GROWTH AFTER 5 DAYS 04/23/19 08:12 Blood-Venous Gram Stain - Final TEST NOT PERFORMED 04/23/19 08:00 Blood-Venous Blood Culture - Final NO GROWTH AFTER 5 DAYS 04/23/19 08:00 Blood-Venous Gram Stain - Final TEST NOT PERFORMED Most Recent Lab Values WBC 6.5 10^3/uL (4.5-11.0) D 04/26/19 06:15 RBC 3.54 10^6/uL (3.5-6.1) 04/26/19 06:15 Hgb 10.8 g/dL (12.0-16.0) L 04/26/19 06:15 Hct 32.2 % (36.0-48.0) L 04/26/19 06:15 MCV 91.0 fl (80.0-105.0) 04/26/19 06:15 MCH 30.5 pg (25.0-35.0) 04/26/19 06:15 MCHC 33.5 g/dl (31.0-37.0) 04/26/19 06:15 RDW 13.5 % (11.5-14.5) 04/26/19 06:15 Plt Count 182 10^3/uL (120.0-450.0) 04/26/19 06:15 MPV 9.3 fl (7.0-11.0) 04/26/19 06:15 Neut % (Auto) 79.2 % (50.0-68.0) H 04/26/19 06:15 Lymph % (Auto) 13.3 % (22.0-35.0) L 04/26/19 06:15 [place] % (Auto) 6.7 % (1.0-6.0) H 04/26/19 06:15 Eos % (Auto) 0.6 % (1.5-5.0) L 04/26/19 06:15 Baso % (Auto) 0.2 % (0.0-3.0) 04/26/19 06:15 Lymph # (Auto) 0.9 (1.2-3.4) L 04/26/19 06:15 [place] # (Auto) 0.4 (0.1-0.6) 04/26/19 06:15 Eos # (Auto) 0.0 (0.0-0.7) 04/26/19 06:15 Baso # (Auto) 0.01 K/mm3 (0.0-2.0) 04/26/19 06:15 Absolute Neuts (auto) 5.16 (1.4-6.5) 04/26/19 06:15 PT 14.0 SECONDS (9.4-12.5) H 04/23/19 07:00 INR 1.24 04/23/19 07:00 pO2 100 mm/Hg (30-55) H 04/22/19 16:20 VBG pH 7.46 (7.32-7.43) H 04/22/19 16:20 VBG pCO2 30.0 (40-60) L 04/22/19 16:20 VBG HCO3 21.3 mmol/l (21-28) 04/22/19 16:20 VBG Total CO2 22.2 mmol.L (22-28) 04/22/19 16:20 VBG O2 Sat (Calc) 99.4 % (40-65) H 04/22/19 16:20 VBG Base Excess -1.5 mmol/L (0.0-2.0) L 04/22/19 16:20 VBG Potassium 3.9 mmol/L (3.6-5.2) 04/22/19 16:20 Sodium 130.0 mmol/L (132-148) L 04/22/19 16:20 Chloride 101.0 mmol/L (98-107) 04/22/19 16:20 Glucose 94 mg/dl (65-105) 04/22/19 16:20 Lactate 1.1 mmol/L (0.7-2.1) 04/22/19 16:20 FiO2 21.0 % 04/22/19 16:20 Sodium 134 mmol/L (132-148) 04/26/19 06:15 Potassium 4.1 mmol/L (3.6-5.0) 04/26/19 06:15 Chloride 102 mmol/L (98-107) 04/26/19 06:15 Carbon Dioxide 23 mmol/L (21-33) 04/26/19 06:15 Anion Gap 14 (10-20) 04/26/19 06:15 BUN 27 mg/dL (7-21) H 04/26/19 06:15 Creatinine 1.3 mg/dl (0.7-1.2) H 04/26/19 06:15 Est GFR ( Amer) 48 04/26/19 06:15 Est GFR (Non-Af Amer) 39 04/26/19 06:15 Random Glucose 120 mg/dL (70-110) H 04/26/19 06:15 Calcium 8.5 mg/dL (8.4-10.5) 04/26/19 06:15 Magnesium 1.8 mg/dL (1.7-2.2) 04/22/19 13:15 Total Bilirubin 0.4 mg/dL (0.2-1.3) 04/26/19 06:15 AST 33 U/L (14-36) 04/26/19 06:15 ALT 21 U/L (7-56) 04/26/19 06:15 Alkaline Phosphatase 66 U/L (38-126) 04/26/19 06:15 Lactate Dehydrogenase 658 U/L (333-699) 04/22/19 13:15 Total Creatine Kinase 161 U/L (35-230) 04/22/19 13:15 Troponin I 0.94 ng/mL H* D 04/24/19 07:00 NT-Pro-B Natriuret Pep 2820 pg/mL (0-450) H 04/24/19 07:00 Total Protein 7.4 g/dL (5.8-8.3) 04/26/19 06:15 Albumin 3.6 g/dL (3.0-4.8) 04/26/19 06:15 Globulin 3.8 gm/dL 04/26/19 06:15 Albumin/Globulin Ratio 0.9 (1.1-1.8) L 04/26/19 06:15 Procalcitonin 0.05 NG/ML (0.19-0.49) L 04/24/19 07:00 TSH 3rd Generation 0.29 mIU/mL (0.46-4.68) L 04/23/19 07:00 Venous Blood Potassium 3.9 mmol/L (3.6-5.2) 04/22/19 16:20 HIV 1&2 Ag/Ab, 4th Gen Nonreactive (Nonreactive) 04/23/19 07:00 Influenza Typ A,B (EIA) Negative for flu a/b (NEGATIVE) 04/26/19 14:15 Ur L.pneumophila Ag Negative (NEGATIVE) 04/23/19 05:30 Attending/Attestation - Attestation I have personally seen and examined this patient.: Yes I have fully participated in the care of the patient.: Yes I have reviewed all pertinent clinical information, including history, physical exam and plan: Yes
== END 2019-04-27 14:28 | disposition home or self-care (01) | DRG 281 ==
LOC: ED 11:41 → ERH 14:33 → 2RSO 16:39
PROVIDERS: ADMIT Family Medicine; ATTEND Family Medicine
DX: I21.4 Non-ST elevation (NSTEMI) myocardial infarction (principal); J44.0 Chronic obstructive pulmonary disease with (acute) lower respiratory infection; I50.30 Unspecified diastolic (congestive) heart failure; J20.9 Acute bronchitis, unspecified; R26.2 Difficulty in walking, not elsewhere classified; I45.10 Unspecified right bundle-branch block; Z85.3 Personal history of malignant neoplasm of breast; K21.9 Gastro-esophageal reflux disease without esophagitis; I25.10 Atherosclerotic heart disease of native coronary artery without angina pectoris; R11.2 Nausea with vomiting, unspecified; M48.00 Spinal stenosis, site unspecified; M43.10 Spondylolisthesis, site unspecified; G89.29 Other chronic pain; M54.5 Low back pain; D72.819 Decreased white blood cell count, unspecified; Z77.22 Contact with and (suspected) exposure to environmental tobacco smoke (acute) (chronic); I11.0 Hypertensive heart disease with heart failure; I27.20 Pulmonary hypertension, unspecified; I25.2 Old myocardial infarction; I08.1 Rheumatic disorders of both mitral and tricuspid valves; E03.9 Hypothyroidism, unspecified; M85.80 Other specified disorders of bone density and structure, unspecified site; Z17.1 Estrogen receptor negative status [ER-]; Z79.02 Long term (current) use of antithrombotics/antiplatelets; Z79.82 Long term (current) use of aspirin; Z79.890 Hormone replacement therapy; Z79.899 Other long term (current) drug therapy; Z90.49 Acquired absence of other specified parts of digestive tract; Z92.21 Personal history of antineoplastic chemotherapy; Z92.3 Personal history of irradiation; Z88.3 Allergy status to other anti-infective agents; Z88.5 Allergy status to narcotic agent; Z88.0 Allergy status to penicillin